=== PATIENT | female | born 1985 | race Caucasian/White ===

== ENCOUNTER 2021-03-25 11:28 | Emergency (ER) | payer OTHER, SELFPAY ==
[2021-03-25 11:36] VITALS: BP 111/69; PULSE 80; RESP 16; TEMP 36.9; O2SAT 98
--- NOTE | 2021-03-25 13:12 | ED.GENADULT ---
HPI - General Adult General Chief complaint: Upper Respiratory Infection Stated complaint: sore throat headache chills Time Seen by Provider: 03/25/21 13:12 Source: patient and RN notes reviewed Mode of arrival: ambulatory Limitations: no limitations History of Present Illness HPI narrative: 36-year-old female presents with complaints of upper respiratory infection symptoms, sore throat, cough, sweats, chills, and intermittent headaches (not the worst of her life) for the past 4 days. Jigna reports no BURRIS now, increasing symptoms daily. DayQuil and NyQuil without relief. History of Bronchitis and smoking. Dry cough without chest congestion. Rhinorrhea and nasal congestion. Exacerbating factors consist of swallowing and smoke exposure. No high fevers. No nausea, vomiting, and abdominal pain. Tolerating po intake well. Denies chest pain, coughing up blood, foreign body sensation, and rash. LMP 03/22/21. Remains active. The patient reports she have not been diagnosed with COVID-19. The patient reports she is not waiting for the results of a COVID-19 lab test. The patient reports she do not have weakness, myalgia, or fatigue. The patient reports she do not have a worsening cough. The patient reports she do not have any loss of smell or taste or diarrhea. Denies recent traveling. Denies concerns for COVID-19 or exposures been home with limited outdoor exposure except for essential household needs, work, and return home. At this time, patient is not suspected of having COVID-19. Some parts of this dictation were generated by voice recognition software and may contain typographical and/or grammatical inaccuracies. Related Data Home Medications Medication Instructions Recorded Confirmed buspirone 20 mg PO TID 03/25/21 03/25/21 escitalopram oxalate 20 mg PO DAILY 03/25/21 03/25/21 ropinirole 0.5 mg PO HS 03/25/21 03/25/21 Allergies Allergy/AdvReac Type Severity Reaction Status Date / Time sulfamethoxazole Allergy Intermediate Hives Verified 03/25/21 12:06 [From Bactrim] trimethoprim [From Bactrim] Allergy Intermediate Hives Verified 03/25/21 12:06 Review of Systems Review of Systems: Narrative: CONSTITUTIONAL: Complains of chills, sweats, possible fever. EYES: Denies visual changes, redness, discharge. ENT: Complains of rhinorrhea, congestion, sore throat. Denies otalgia. CARDIOVASCULAR: Denies chest pain, palpitations, edema. RESPIRATORY: Denies wheezing. Complains of dry cough, intermittent dyspnea. GASTROINTESTINAL: Denies abdominal pain, nausea, vomiting, diarrhea. SKIN: Denies rash or itching. MUSCULOSKELETAL: Denies acute back pain, joint pain, myalgia. NEUROLOGIC: Denies numbness or focal weakness. PSYCHIATRIC: Denies anxiety or depression. Complains of intermittent BURRIS. All systems reviewed & are unremarkable except as noted in HPI and below. [facility] Past Medical History Medical History Anxiety Bronchitis delivery delivered Depression Smoker Surgical History Surgical History (Updated 03/25/21 @ 13:27 by SHMUEL Aranda) H/O section X2 History of cholecystectomy History of tubal ligation Family History Family History (Updated 03/25/21 @ 13:27 by SHMUEL Aranda) Father , Related to cancer, type unknown to Jigna Cancer Mother Alive and well Social History Social History (Updated 03/25/21 @ 13:28 by SHMUEL Aranda) Smoking packs per day: 0.5 Smoking cigarettes per day: 10.0 Years smoked: 20 Smoking pack-years: 10.00 Smoking status: Current every day smoker Tobacco type: cigarettes Second hand tobacco smoke exposure: Yes Alcohol intake: never Substance use: never Living arrangements: with family Occupation/Education: occupation Gender identity (if verbalized by the patient): Female Sexual Orientation (if Verbalized by the Patient): Straight or Heterosexual Comments At time of signature,
[2021-03-26 20:07] LABS: SARS-CoV-2 RNA PCR Negative
== END 2021-03-25 13:40 | disposition home or self-care (01) ==
PROVIDERS: Emergency Provider Nurse Practitioner Family; PCP Internal Medicine
DX: B34.9 Viral infection, unspecified (principal); Z20.822 Contact with and (suspected) exposure to COVID-19; F17.210 Nicotine dependence, cigarettes, uncomplicated; F41.9 Anxiety disorder, unspecified; F32.9 Major depressive disorder, single episode, unspecified
CPT/HCPCS: 87081; 87426; 87880; 99213; C9803; G0463; U0003; U0005

== ENCOUNTER 2021-09-09 12:11 | Emergency (ER) | payer OTHER, SELFPAY ==
[2021-09-09 12:15] VITALS: BP 117/72; PULSE 88; RESP 20; TEMP 36.7; O2SAT 100
--- NOTE | 2021-09-09 12:19 | ED.URI ---
HPI - URI/Sore Throat General Chief Complaint: Upper Respiratory Infection Stated Complaint: Sore Throat/ Ear Itching Time Seen by Provider: 09/09/21 12:19 Source: patient and RN notes reviewed History of Present Illness HPI Narrative: Patient is a 36-year-old female who presents the urgent care with complaints of intermittent sore throat, bilateral itchy ears, intermittent headaches, mostly dry cough, postnasal drainage. Patient states that she has been using someone else's albuterol and nebulizer with improvement of symptoms. Patient denies of any fever, nausea, vomiting. Currently denies any shortness of breath. Patient has not been Covid vaccinated but denies of any known exposure to Covid or strep. Patient has been taking Excedrin Migraine, DayQuil for symptoms. No other acute complaints. No acute distress noted. Patient aware of the plan of care. Some parts of this dictation were generated by voice recognition software and may contain typographical and/or grammatical inaccuracies. Related Data Home Medications Medication Instructions Recorded Confirmed buspirone 20 mg PO TID 09/09/21 09/09/21 escitalopram oxalate 10 mg PO DAILY 09/09/21 09/09/21 escitalopram oxalate 20 mg PO DAILY 09/09/21 09/09/21 hydroxyzine pamoate 25 mg PO TID 09/09/21 09/09/21 ropinirole 0.5 mg PO DAILY 09/09/21 09/09/21 Allergies Allergy/AdvReac Type Severity Reaction Status Date / Time sulfamethoxazole Allergy Intermediate Hives Verified 09/09/21 12:41 [From Bactrim] trimethoprim [From Bactrim] Allergy Intermediate Hives Verified 09/09/21 12:41 Review of Systems Review of Systems: CONSTITUTIONAL: Denies fever, chills, or sweats. EYES: Denies visual changes, redness, or discharge. ENT: Reports of bilateral itchy ears, sore throat, postnasal drainage CARDIOVASCULAR: Denies chest pain, palpitations, or edema. RESPIRATORY: Reports a nonproductive cough without dyspnea GASTROINTESTINAL: Denies abdominal pain, nausea, vomiting, or diarrhea. GENITOURINARY: Denies dysuria or hematuria. SKIN: Denies rash or itching. MUSCULOSKELETAL: Denies back pain, joint pain, or myalgia. NEUROLOGIC: Reports of intermittent headaches All other systems reviewed are negative, except as documented in HPI. PMFSH Past Medical History Medical History Anxiety Bronchitis delivery delivered Depression Smoker Surgical History Surgical History (Updated 03/25/21 @ 13:27 by SHMUEL Aranda) H/O section X2 History of cholecystectomy History of tubal ligation Family History Family History (Updated 03/25/21 @ 13:27 by SHMUEL Aranda) Father , Related to cancer, type unknown to Jigna Cancer Mother Alive and well Social History Social History (Updated 03/25/21 @ 13:28 by SHMUEL Aranda) Smoking packs per day: 0.5 Smoking cigarettes per day: 10.0 Years smoked: 20 Smoking pack-years: 10.00 Smoking status: Current every day smoker Tobacco type: cigarettes Second hand tobacco smoke exposure: Yes Alcohol intake: never Substance use: never Gender identity (if verbalized by the patient): Female Sexual Orientation (if Verbalized by the Patient): Straight or Heterosexual Comments At the time of my signature, I reviewed and agree with the nursing past medical, surgical, social, and family history. There is no relevant family history pertinent to the patient complaint. Exam Narrative: GENERAL: This is a well-nourished, well-developed patient, in no apparent distress. HEAD: normocephalic, atraumatic. EYES: PERRL. Sclera clear/white. Vision is grossly intact. EARS: External ears normal, auditory canals clear and without drainage, TMs normal without perforation. Hearing grossly intact. NOSE: External nose normal with no obvious nasal discharge, nares without redness, clear rhinorrhea. THROAT: Mucous membranes moist, mild erythema in posterior pharynx with moderate postnasal dr
== END 2021-09-09 12:50 | disposition home or self-care (01) ==
PROVIDERS: Emergency Provider Nurse Practitioner Family
DX: J06.9 Acute upper respiratory infection, unspecified (principal); F17.210 Nicotine dependence, cigarettes, uncomplicated; F41.9 Anxiety disorder, unspecified; F32.A Depression, unspecified
CPT/HCPCS: 87081; 87880; 99213; G0463

== ENCOUNTER 2021-12-26 08:32 | Emergency (ER) | payer OTHER, SELFPAY ==
--- NOTE | ~2021-12-26 | XR_ITS ---
EXAMINATION: XR abdomen/kub 1V INDICATION: Abdominal pain TECHNIQUE: Supine views of the abdomen were obtained on 2 radiographs. COMPARISON: None FINDINGS: Pelvic calcifications have the appearance of phleboliths. There is a moderate volume of lef t-sided colonic stool. No dilated loops of bowel are evident. Surgical clips in the right upper quadr ant are likely from prior cholecystectomy. The visualized lung bases are clear. IMPRESSION: 1. No radiographic correlate for the patient's symptoms. Reviewed, dictated and finalized at location A. [facility] HELPER
[2021-12-26 08:38] VITALS: BP 135/63; PULSE 80; RESP 20; TEMP 37.1; O2SAT 98
--- NOTE | 2021-12-26 09:38 | ED.ABDPAIN ---
HPI - Abdominal Pain General Chief Complaint: Abdominal Pain Stated Complaint: Abdominal Pain/constipation Time Seen by Provider: 12/26/21 08:56 Source: patient and RN notes reviewed Mode of arrival: ambulatory Limitations: no limitations History of Present Illness HPI narrative: Presents today complaining, I can't go to the bathroom. Patient states she has not had a normal bowel movement in 2 days, which has led to supraorbital pain. She has had 2 very hard small stools, where she normally has bowel movements daily. Denies blood or mucus in her hard stools. Denies nausea, vomiting, fever. She has not tried any [id number] treatment prior to arrival, as she states she did not have time due to her work schedule. States she has taken laxatives in the past for similar symptoms. MD elicited complaint: abdominal pain and other (Constipation) Related Data Home Medications Medication Instructions Recorded Confirmed buspirone 20 mg PO TID 09/09/21 12/26/21 escitalopram oxalate 20 mg PO DAILY 09/09/21 12/26/21 bupropion HCl [Wellbutrin XL] 300 mg PO QAM 12/26/21 12/26/21 Allergies Allergy/AdvReac Type Severity Reaction Status Date / Time sulfamethoxazole Allergy Intermediate Hives Verified 12/26/21 08:57 [From Bactrim] trimethoprim [From Bactrim] Allergy Intermediate Hives Verified 12/26/21 08:57 Review of Systems Review of Systems: CONSTITUTIONAL: Denies body aches, fever, chills, or sweats. EYES: Denies visual changes, redness, or discharge. ENT: Denies rhinorrhea, congestion, sore throat, or otalgia. CARDIOVASCULAR: Denies chest pain, palpitations, or edema. RESPIRATORY: Denies cough or dyspnea. GASTROINTESTINAL: Denies nausea, vomiting, or diarrhea.+ Abdominal pain, constipation GENITOURINARY: Denies dysuria or hematuria. SKIN: Denies rash, itching, or wounds. MUSCULOSKELETAL: Denies back pain, joint pain, or myalgia. NEUROLOGIC: Denies headache, numbness, tingling, or weakness. PSYCH: Denies depression or anxiety. PMF Past Medical History Medical History Anxiety Bronchitis delivery delivered Depression Smoker Surgical History Surgical History H/O section X2 History of cholecystectomy History of tubal ligation Family History Family History Father , Related to cancer, type unknown to Jigna Cancer Mother Alive and well Social History Social History Smoking packs per day: 0.5 Smoking cigarettes per day: 10.0 Years smoked: 20 Smoking pack-years: 10.00 Smoking status: Current every day smoker Tobacco type: cigarettes Second hand tobacco smoke exposure: Yes Alcohol intake: never Substance use: never Gender identity (if verbalized by the patient): Female Sexual Orientation (if Verbalized by the Patient): Straight or Heterosexual Comments At time of signature, I have reviewed and agree with nursing past medical, surgical, social and family history unless otherwise noted. Please see nursing chart for further information. There is no relevant family history pertinent to the presenting complaint Exam Narrative: GENERAL: Well-appearing, well-nourished, and in no acute distress. HEAD: Normocephalic, atraumatic. EYES: EOMI. No redness or drainage. Conjunctivae normal. ENT: Mucous membranes pink and moist. NECK: Normal AROM. CHEST: No respiratory distress. Clear to auscultation. HEART: Regular rate and rhythm. No murmur appreciated. Normal peripheral pulses. ABDOMEN: Soft, nondistended, normal active bowel sounds. Mild tenderness to left upper and lower quadrants. MUSCULOSKELETAL: No bony tenderness. EXTREMITIES: Normal range of motion. No edema. SKIN: Warm, dry, no rash. Capillary refill normal. Normal skin turgor. NEURO: No focal deficits. Alert and
== END 2021-12-26 09:50 | disposition home or self-care (01) ==
PROVIDERS: Emergency Provider Nurse Practitioner; PCP Internal Medicine
DX: K59.00 Constipation, unspecified (principal); F17.210 Nicotine dependence, cigarettes, uncomplicated; F41.9 Anxiety disorder, unspecified; F32.A Depression, unspecified
CPT/HCPCS: 74018; 81003; 99213; G0463

== ENCOUNTER 2022-01-11 11:09 | Emergency (ER) | payer OTHER, SELFPAY ==
--- NOTE | ~2022-01-11 | XR_ITS ---
EXAMINATION: XR lumbar spine 2-3V DATE: 01/11/2022 11:42 INDICATION: Low back pain. TECHNIQUE: 3 views of lumbar spine were obtained. COMPARISON: None. FINDINGS: There is 6 degrees levocurvature of thoracolumbar spine. Vertebral body heights and interve rtebral disc heights are normal. There are endplate osteophytes at multiple levels. There is multilev el mild facet joint osteoarthritis. Surgical clips in the right upper quadrant are likely from cholec ystectomy. IMPRESSION: 1. Mild lumbar spondylosis. Reviewed, dictated and finalized at location A. [facility] IMPRESSION: 1. Mild lumbar spondylosis.
[2022-01-11 11:18] VITALS: BP 102/71; PULSE 84; RESP 20; TEMP 36.6; O2SAT 100
--- NOTE | 2022-01-11 11:24 | ED.GENADULT ---
HPI - General Adult General Chief complaint: Back Pain/Injury Stated complaint: Back pain Time Seen by Provider: 01/11/22 11:24 Source: patient Mode of arrival: ambulatory Limitations: no limitations History of Present Illness HPI narrative: 36-year-old female patient presents to the [facility] with complaints of lower back pain. 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 Patient states she now has pain running down the left side of the leg. Patient states that has been difficult to walk. Denies taking anything for pain prior to arrival. Related Data Home Medications Medication Instructions Recorded Confirmed escitalopram oxalate 20 mg PO HS 09/09/21 01/11/22 bupropion HCl [Wellbutrin XL] 300 mg PO QAM 12/26/21 01/11/22 buspirone 15 mg PO TID 01/11/22 01/11/22 Allergies Allergy/AdvReac Type Severity Reaction Status Date / Time sulfamethoxazole Allergy Intermediate Hives Verified 01/11/22 11:40 [From Bactrim] trimethoprim [From Bactrim] Allergy Intermediate Hives Verified 01/11/22 11:40 Review of Systems Review of Systems: CONSTITUTIONAL: Denies fever, chills, or sweats. EYES: Denies visual changes, redness, or discharge. ENT: Denies rhinorrhea, congestion, sore throat, or otalgia. CARDIOVASCULAR: Denies chest pain, palpitations, or edema. RESPIRATORY: Denies cough or dyspnea. GASTROINTESTINAL: Denies abdominal pain, nausea, vomiting, or diarrhea. GENITOURINARY: Denies dysuria or hematuria. SKIN: Denies rash or itching. MUSCULOSKELETAL: Positive low back pain, denies joint pain, or myalgia. NEUROLOGIC: Denies headache, numbness, or weakness. PSYCHIATRIC: Denies anxiety or depression. [facility] Past Medical History Medical History Anxiety Bronchitis delivery delivered Chronic back pain Depression Smoker Surgical History Surgical History H/O section X2 History of cholecystectomy History of tubal ligation Family History Family History Father , Related to cancer, type unknown to Jigna Cancer Mother Alive and well Social History Social History Smoking packs per day: 0.5 Smoking cigarettes per day: 10.0 Years smoked: 20 Smoking pack-years: 10.00 Smoking status: Current every day smoker Tobacco type: cigarettes Second hand tobacco smoke exposure: Yes Alcohol intake: never Substance use: never Gender identity (if verbalized by the patient): Female Sexual Orientation (if Verbalized by the Patient): Straight or Heterosexual Comments At the time of my signature I agree with nursing past medical history, surgical, social, and family history. There is no relevant family history pertinent to the presenting complaint. Exam Narrative: GENERAL: Well-appearing, well-nourished, and in no acute distress. HEAD: Normocephalic, atraumatic. EYES: PERRLA and EOMI. ENT: Nares clear, no rhinorrhea or epistaxis. Mucous membranes moist. NECK: Supple. No lymphadenopathy CHEST: Clear to auscultation. No respiratory distress. HEART: Regular rate and rhythm. No murmur heard. Normal peripheral pulses. ABDOMEN: Soft, nontender, nondistended, normal active bowel sounds. EXTREMITIES: Normal range of motion. No edema. BACK: Patient is able to ambulated without assistance. Pt is seated on the chair in obvouis distress. No surface trauma noted. muscle tenderness to Palpation noted to the lower lumbar spine and bilateral sides. No obvious spasm or mass. No step-offs or deformity noted to the cervical, thoracic or lumbar spine to firm Palpation at the midline. No CVA tenderness to percussion. No saddle anesthesia. ROM: able to stand erect. Decrease flexion, extension, Lateral bending and rotation with limitation and complaint of pain
[2022-01-11] MEDS: IBUPROFEN 400 MG TABLET 800 MG PO (11:43)
== END 2022-01-11 12:10 | disposition home or self-care (01) ==
PROVIDERS: Emergency Provider Nurse Practitioner Family
DX: S39.012A Strain of muscle, fascia and tendon of lower back, initial encounter (principal); X50.9XXA Other and unspecified overexertion or strenuous movements or postures, initial encounter; M54.32 Sciatica, left side; F17.210 Nicotine dependence, cigarettes, uncomplicated; F41.9 Anxiety disorder, unspecified; F32.A Depression, unspecified
CPT/HCPCS: 72100; 99213; A9270; G0463

== ENCOUNTER 2022-07-25 15:06 | Emergency (ER) | payer OTHER, SELFPAY ==
[2022-07-25 15:15] VITALS: BP 118/74; PULSE 101; RESP 16; TEMP 37.1; O2SAT 98
--- NOTE | 2022-07-25 15:28 | ED.EYEPROB ---
HPI - Eye Problem General Chief complaint: Eye Problems Stated complaint: right eye fb or scratch Time Seen by Provider: 07/25/22 15:20 Source: patient Mode of arrival: ambulatory Limitations: no limitations History of Present Illness HPI Narrative: Ms. Villeda is a 37-year-old female patient presenting to the clinic today with complaints of right eye discomfort/blurry vision. She reports that she had symptoms bone in her eye yesterday and has been dealing with this since last night. States no pain with light however she does have blurry vision due to eye watering. Related Data Home Medications Medication Instructions Recorded Confirmed escitalopram oxalate 20 mg tablet 20 mg PO HS 09/09/21 07/25/22 bupropion HCl 300 mg 24 hr tablet, 300 mg PO QAM 12/26/21 07/25/22 extended release (Wellbutrin XL) buspirone 15 mg tablet 15 mg PO TID 01/11/22 07/25/22 Allergies Allergy/AdvReac Type Severity Reaction Status Date / Time sulfamethoxazole Allergy Intermediate Hives Verified 07/25/22 15:19 [From Bactrim] trimethoprim [From Bactrim] Allergy Intermediate Hives Verified 07/25/22 15:19 Review of Systems Review of Systems: Pertinent positives per HPI. Patient denies any fever, chills, rash, headache, visual changes, dizziness, cough, runny nose, sore throat, shortness of breath, chest pain, palpitations, nausea, vomiting, diarrhea, constipation, abdominal pain, or any urinary issues. PMFSH Past Medical History Medical History Anxiety Bronchitis delivery delivered Chronic back pain Depression Smoker Surgical History Surgical History H/O section X2 History of cholecystectomy History of tubal ligation Family History Family History Father , Related to cancer, type unknown to Jigna Cancer Mother Alive and well Social History Social History Smoking packs per day: 0.5 Smoking cigarettes per day: 10.0 Years smoked: 20 Smoking pack-years: 10.00 Smoking status: Current every day smoker Tobacco type: cigarettes Second hand tobacco smoke exposure: Yes Alcohol intake: never Substance use: never Gender identity (if verbalized by the patient): Female Sexual Orientation (if Verbalized by the Patient): Straight or Heterosexual Comments At the time of my signature, I reviewed and agree with the nursing past medical, surgical, social, and family history. There is no relevant family history pertinent to the patient complaint. Exam Narrative: General: Well-developed, well nourished, in no apparent distress Head: Normocephalic, atraumatic Eyes: Pupils equally round and reactive to light bilaterally, EOM intact, right sclera and conjunctive injected and red, left sclera and conjunctiva clear, watery clear discharge from right eye, left lids normal, right lids mildly swelling Ears: TMs intact and clear, ear canals clear, no drainage, grossly hearing normal. Nose: Nares patent, no discharge, no inflammation, no sinus tenderness. Mouth: Oropharynx without lesions or masses, good dentition, MMM. Neck: Supple, trachea midline, no enlargement of anterior or posterior cervical nodes, no thyroid masses or goiter palpable. Cardio: Regular rate and rhythm, s1 and s2 normal, no murmur appreciated. Resp: Clear to auscultation bilaterally anteriorly and posteriorly, no rhonchi, rales, wheezing or rubs Course Course Emergency Course: Portions of this record may have been created with voice recognition software. Level of Care: Express Care Visit Vital Signs Vital signs: Vital Signs Temperature 37.1 C 07/25/22 15:15 Pulse Rate 101 H 07/25/22 15:15 Respiratory Rate 16 07/25/22 15:15 Blood Pressure 118/74 07/25/22 15:15 Pulse Oximetry 98 07/25/22 15:15 Oxygen Delivery
== END 2022-07-25 15:38 | disposition home or self-care (01) ==
PROVIDERS: Emergency Provider Nurse Practitioner Family
DX: H57.11 Ocular pain, right eye (principal); F41.8 Other specified anxiety disorders; F17.210 Nicotine dependence, cigarettes, uncomplicated
CPT/HCPCS: 99213; A9270; G0463

== ENCOUNTER 2022-12-22 08:15 | Emergency (ER) | payer OTHER, SELFPAY ==
[2022-12-22 08:20] VITALS: BP 122/81; PULSE 94; RESP 20; TEMP 36.9; O2SAT 97
--- NOTE | 2022-12-22 08:59 | ED.ABDPAIN ---
HPI - Abdominal Pain General Chief Complaint: Abdominal Pain Stated Complaint: Abdominal Pain Time Seen by Provider: 12/22/22 08:59 Source: patient, RN notes reviewed and old records reviewed Mode of arrival: ambulatory Limitations: no limitations History of Present Illness HPI narrative: 37-year-old female who presents to [facility] with complaints right lower quadrant pain with nausea starting yesterday with pain increased this morning. Patient states that she thought she may of been constipated and took stool softeners yesterday and had a normal bowel movement this morning. Patient reports that her appetite is decreased but she has drank liquids this morning. Patient reports that she has not experienced any vomiting or any episodes of diarrhea or any known fevers. MD elicited complaint: abdominal pain (RLQ) Pain scale (0-10): 10 Treatments prior to arrival: other (none) Related Data Home Medications Medication Instructions Recorded Confirmed bupropion HCl 300 mg 24 hr tablet, 300 mg PO QAM 12/26/21 12/22/22 extended release (Wellbutrin XL) buspirone 30 mg tablet 30 mg PO BID 12/22/22 12/22/22 escitalopram oxalate 10 mg tablet 10 mg PO DAILY 12/22/22 12/22/22 ropinirole 0.5 mg tablet 0.5 mg PO QHS 12/22/22 12/22/22 Allergies Allergy/AdvReac Type Severity Reaction Status Date / Time sulfamethoxazole Allergy Intermediate Hives Verified 12/22/22 08:57 [From Bactrim] trimethoprim [From Bactrim] Allergy Intermediate Hives Verified 12/22/22 08:57 Review of Systems Review of Systems: CONSTITUTIONAL: Denies fever, chills, or sweats. ENT: Denies rhinorrhea, congestion, sore throat, or otalgia. CARDIOVASCULAR: Denies chest pain, palpitations, or edema. RESPIRATORY: Denies cough or dyspnea. GASTROINTESTINAL: Reports RLQ abdominal pain, nausea,no vomiting, no diarrhea. GENITOURINARY: Denies dysuria or hematuria. SKIN: Denies rash or itching. MUSCULOSKELETAL: Denies back pain, joint pain, or myalgia. NEUROLOGIC: Denies headache, numbness, or weakness. All systems reviewed & are unremarkable except as noted in HPI and below PMFSH Past Medical History Medical History Anxiety Bronchitis delivery delivered Chronic back pain Depression Smoker Surgical History Surgical History H/O section X2 History of cholecystectomy History of tubal ligation Family History Family History Father , Related to cancer, type unknown to Jigna Cancer Mother Alive and well Social History Social History Smoking packs per day: 0.5 Smoking cigarettes per day: 10.0 Years smoked: 20 Smoking pack-years: 10.00 Smoking status: Current every day smoker Tobacco type: cigarettes Second hand tobacco smoke exposure: Yes Alcohol intake: never Substance use: never Living arrangements: with family Occupation/Education: occupation Gender identity (if verbalized by the patient): Female Sexual Orientation (if Verbalized by the Patient): Straight or Heterosexual Comments At time of signature, agree with nursing past medical, surgical, social and family history. There is no relevant family history pertinent to the presenting complaint Exam Narrative: GENERAL: Well-appearing, well-nourished, and in no acute distress. HEAD: Normocephalic, atraumatic. EYES: PERRLA, conjunctivae clear, and EOMI. ENT: Nares clear. Mucous membranes moist. Oropharynx without edema, erythema, or lesions. Tonsils not enlarged and without exudate. NECK: Supple. No lymphadenopathy CHEST: Speaks in full sentences. No respiratory distress. HEART: Regular rate and rhythm. ABDOMEN: Soft, flat, nondistended. positive for guarding, no rebound tenderness, or rigid. No pulsatilla masses. Bowel sounds present in all four quadrant
== END 2022-12-22 09:10 | disposition short-term general hospital (02) ==
PROVIDERS: Emergency Provider Registered Nurse; PCP Internal Medicine
DX: R10.31 Right lower quadrant pain (principal); F17.210 Nicotine dependence, cigarettes, uncomplicated; F41.9 Anxiety disorder, unspecified; F32.A Depression, unspecified
CPT/HCPCS: 81003; 99212; G0463

== ENCOUNTER 2025-08-12 08:56 | Emergency (ER) | payer BC, SELFPAY ==
--- OUTSIDE RECORDS SUMMARY | 2025-08-12 09:01 | XMS_ITS | Data Portability ---
Author Organization [place] - [facility] Access Media 3, Main Office Address [address] [place] [address] Care Team Providers Care Care Asst Name Role Phone Unavailable Account Liaison Hospice Unavailable Account Liaison Hospice Assessment No assessment recorded. Plan of Treatment Reminders Order Date Submit Date Provider Last Modified By Organization Details Last Modified Time Details Appointments None recorded. Lab vitamin D, 25-hydroxy, total, serum 2022 023 [email or web address] [address] [place] [address] (Lab), [address] [place], [address], 4 08:30:54 CBC w/ auto diff 2022 023 [facility] [address] [place] [address] (Lab), [address] [place], [address], 4 08:30:54 lipid panel, serum 2022 023 [email or web address] [address] [place] [address] (Lab), [address] [place], [address], 4 08:30:54 CMP, serum or plasma 2022 023 [facility] [address] [place] [address] (Lab), [address] [place], [address], 4 08:30:54 TSH, serum or plasma 2022 023 [facility] [address] [place] [address] (Lab), [address] [place], [address], 4 08:30:54 Referral chimney repairer referral 2022 023 [email or web address] 6 Kishore Padron DPM, [address], [place], [address], 4 08:31:11 Procedures None recorded. Surgeries None recorded. Imaging None recorded. Medication Orders ropinirole 1 mg tablet 2022 023 [id number], [address], [place], [place], [id number], 3 15:49:27 Patient TargetsNo targets recorded. 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 Referral for Ingr owing toenail Referring Physician: Eulalia Solares, Internal Medicine, Encounter Date: 05/07/2023 Results Created Date Observation Date Name Description Value Unit Range Abnormal Flag Note LastModifiedBy Organization Detail LastModifiedTime 05/20/20 22 05/20/2022 TSH thyroid-stim ulating hormone 1.010 uIU/m L 0.465- 4.680 Not Available [facility] (Lab) [address] [place], [address], 05/20/2022 11:33:51 05/20/20 22 05/20/2022 VITAM IN D 25-HY DROXY vd25oh 61.7 NG/mL 30-100 Vitam in D Statu s: Defic ient: <20 ng/mL Insuf ficie nt: 20-29 ng/mL Suffi cient : 30-10 0 ng/mL Not Available [facility] (Lab) [address] [place], [address], 05/20/2022 11:23:35 05/20/20 22 05/20/2022 T4 FREE free T4 1.19 NG/dL 0.78-2 .19 Not Available [facility] (Lab) [address] [place], [address], 05/20/2022 11:23:25 05/20/20 22 05/20/2022 LIPID PANEL LDL cholesterol, calculated 87 mg/dL 0-130 NIH ABDI NSUS REPOR T RECOM MENDA TIONS FOR LDL: ADULT CHILD LOW RISK <130 <110 (OPTI MAL LDL) <100 ----- BORDE RLINE : 130-1 59 ----- HIGH RISK: >160 >130 A TRIGL YCERI DE RESUL T >400 INVAL IDATE S THE CALCU LATIO N FOR LDL FRACT IONAT ION - THE LDL RESUL T WILL NOT BE REPOR BRANDY. Not Available [facility] (Lab) [address] [place], [address], 05/20/2022 11:05:45 05/20/20 22 05/20/2022 LIPID PANEL cholesterol 161 mg/dL 140-19 9 NIH ABDI NSUS RECOM MENDA TION FOR LUIS DANIEL STERO L: ADULT CHILD LOW RISK: <200 <170 BORDE RLINE : <200- 239 ----- HIGH RISK: >240 >200 Not Available [facility] (Lab) [address] [place], [address], 05/20/2022 11:05:45 05/20/20 22 05/20/2022 LIPID PANEL triglyceride s 73 mg/dL 0-150 NIH ABDI NSUS REPOR T RECOM MENDA TION FOR TRIGL YCERI RINA: ADULT CHILD LOW RISK: <150 ----- BODER LINE: 150-1 99 ----- HIGH RISK: >200 ----- Not Available [facility] (Lab) [address] [place], [address], 05/20/2022 11:05:45 05/20/20 22 05/20/2022 LIPID PANEL HDL cholesterol 59 mg/dL 40- Not Available [facility] (Lab) [address] [place], [address], 05/20/2022 11:05:45 05/20/20 22 05/20/2022 COMPR EHENS ALEN METAB OLIC PANEL sodium 139 mmol/ L 137-14 5 Not Available [facility] (Lab) [address] [place], [address], 05/20/2022 11:05:42 05/20/20 22 05/20/2022 COMPR EHENS ALEN METAB OLIC PANEL potassium 4.0 mmol/ L 3.5-5. 1 Not Available [facility] (Lab) [address] [place], [address], 05/20/2022 11:05:42 05/20/20 22 05/20/2022 COMPR EHENS ALEN METAB OLIC PANEL chloride 106 mmol/ L 98-107 Not Available [facility] (Lab) [address] [place], [address], 05/20/2022 11:05:42 05/20/20 22 05/20/2022 COMPR EHENS ALEN METAB OLIC PANEL carbon dioxide 28 mmol/ L 22-30 Not Available [facility] (Lab) [address] [place], [address], 05/20/2022 11:05:42 05/20/20 22 05/20/2022 COMPR EHENS ALEN METAB OLIC PANEL anion gap 9.0 mmol/ L 14-22 low Not Available [facility] (Lab) [address] [place], [address], 05/20/2022 11:05:42 05/20/20 22 05/20/2022 COMPR EHENS ALEN METAB OLIC PANEL glucose 100 mg/dL 70-99 high Not Available [facility] (Lab) [address] [place], [address], 05/20/2022 11:05:42 05/20/20 22 05/20/2022 COMPR EHENS ALEN METAB OLIC PANEL BUN 10 mg/dL 8-19 Not Available [facility] (Lab) [address] [place], [address], 05/20/2022 11:05:42 05/20/20 22 05/20/2022 COMPR EHENS ALEN METAB OLIC PANEL creatinine 0.76 mg/dL 0.66-1 .25 Not Available [facility] (Lab) [address] [place], [address], 05/20/2022 11:05:42 05/20/20 22 05/20/2022 COMPR EHENS ALEN METAB OLIC PANEL GFR >60 Refer ence Range : [place] GFR Healt hy Adult : >60 mL/mi n/1.7 3 m2 Chron ic Kidne y Disea se: 15-60 mL/mi n/1.7 3 m2 Kidne y Failu re: <15/m L/min /1.73 m2 www.n iddk. nih.g ov The MDRD study equat ion has not been valid ated in child allen <18 years of age; pregn ant women ; the elder ly >85 years of age; or in some racia l or ethni c subgr oups, such as wa nics. Outsi de the valid ated shaw eters , estim ated GFR is less accur ate, requi ring clini nhung judgm ent on a case- by-ca se basis . Clini nhung inter preta tion for other races and ages must be made by the clini vera. The MDRD study equat ion has not been valid ated for the evalu ation of serum creat inine relat ed to nutri amy l statu s or medic ation usage . For perso ns <18 years of age, a pedia tric GFR calcu lator is avail able on the F websi te: https ://patrizia w.lennox christina.o rg/pr ofess ional s/kdo qi/gf r_cal culat or Not Available [facility] (Lab) [address] [place], [address], 05/20/2022 11:05:42 05/20/20 22 05/20/2022 COMPR EHENS ALEN METAB OLIC PANEL globulin 2.8 g/dL 2.6-4. 2 Not Available [facility] (Lab) [address] [place], [address], 05/20/2022 11:05:42 05/20/20 22 05/20/2022 COMPR EHENS ALEN METAB OLIC PANEL alkaline phosphatase 78 U/L 38-126 Not Available [facility] (Lab) [address] [place], [address], 05/20/2022 11:05:42 05/20/20 22 05/20/2022 COMPR EHENS ALEN METAB OLIC PANEL alanine aminotransfe rase 17 U/L 0-35 Not Available [facility] (Lab) [address] [place], [address], 05/20/2022 11:05:42 05/20/20 22 05/20/2022 COMPR EHENS ALEN METAB OLIC PANEL aspartate aminotransfe rase 24 U/L 15-37 Not Available [facility] (Lab) [address] [place], [address], 05/20/2022 11:05:42 05/20/20 22 05/20/2022 COMPR EHENS ALEN METAB OLIC PANEL bilirubin, total 0.50 mg/dL 0.20-1 .30 Not Available [facility] (Lab) [address] [place], [address], 05/20/2022 11:05:42 05/20/20 22 05/20/2022 COMPR EHENS ALEN METAB OLIC PANEL calcium 8.7 mg/dL 8.4-10 .2 Not Available [facility] (Lab) [address] [place], [address], 05/20/2022 11:05:42 05/20/20 22 05/20/2022 COMPR EHENS ALEN METAB OLIC PANEL total protein 6.9 g/dL 6.3-8. 2 Not Available [facility] (Lab) [address] [place], [address], 05/20/2022 11:05:42 05/20/20 22 05/20/2022 COMPR EHENS ALEN METAB OLIC PANEL albumin 4.1 g/dL 3.4-5. 0 Not Available [facility] (Lab) [address] [place], [address], 05/20/2022 11:05:42 05/20/20 22 05/20/2022 COMPR EHENS ALEN METAB OLIC PANEL A/G ratio 1.5 ratio 1.0-2. 0 Not Available [facility] (Lab) [address] [place], [address], 05/20/2022 11:05:42 05/20/20 22 05/20/2022 CBC/C OMPLE TE BLD COUNT W/DIF F white blood cells 7.9 x10'3 /uL 4.2-10 .8 Not Available [facility] (Lab) [address] [place], [address], 05/20/2022 11:03:24 05/20/20 22 05/20/2022 CBC/C OMPLE TE BLD COUNT W/DIF F red blood cells 4.12 x10'6 /uL 3.80-5 .20 Not Available [facility] (Lab) [address] [place], [address], 05/20/2022 11:03:24 05/20/20 22 05/20/2022 CBC/C OMPLE TE BLD COUNT W/DIF F hemoglobin 12.9 g/dL 12.0-1 5.6 Not Available [facility] (Lab) [address] [place], [address], 05/20/2022 11:03:24 05/20/20 22 05/20/2022 CBC/C OMPLE TE BLD COUNT W/DIF F hematocrit 37.7 % 35.7-4 5.7 Not Available [facility] (Lab) [address] [place], [address], 05/20/2022 11:03:24 05/20/20 22 05/20/2022 CBC/C OMPLE TE BLD COUNT W/DIF F mean red cell volume 91.5 fL 82.0-9 9.0 Not Available [facility] (Lab) [address] [place], [address], 05/20/2022 11:03:24 05/20/20 22 05/20/2022 CBC/C OMPLE TE BLD COUNT W/DIF F mean red cell hemoglobin 31.3 pg 27.0-3 3.0 Not Available [facility] (Lab) [address] [place], [address], 05/20/2022 11:03:24 05/20/20 22 05/20/2022 CBC/C OMPLE TE BLD COUNT W/DIF F mean RBC HGB concentratio n 34.2 g/dL 31.0-3 6.0 Not Available [facility] (Lab) [address] [place], [address], 05/20/2022 11:03:24 05/20/20 22 05/20/2022 CBC/C OMPLE TE BLD COUNT W/DIF F red cell distribution width 13.7 % 11.8-1 5.5 Not Available [facility] (Lab) [address] [place], [address], 05/20/2022 11:03:24 05/20/20 22 05/20/2022 CBC/C OMPLE TE BLD COUNT W/DIF F platelets 193 x10'3 /uL 150-40 0 Not Available [facility] (Lab) [address] [place], [address], 05/20/2022 11:03:24 05/20/20 22 05/20/2022 CBC/C OMPLE TE BLD COUNT W/DIF F mean platelet volume 10.6 fL 9.0-12 .4 Not Available [facility] (Lab) [address] [facility] [place], [address], 05/20/2022 11:03:24 05/20/20 22 05/20/2022 CBC/C OMPLE TE BLD COUNT W/DIF F neutrophils 59.8 % 39.0-7 2.0 Not Available [facility] (Lab) [address] [place], [address], 05/20/2022 11:03:24 05/20/20 22 05/20/2022 CBC/C OMPLE TE BLD COUNT W/DIF F lymphocytes 31.6 % 16.0-4 7.0 Not Available [facility] (Lab) [address] [place], [address], 05/20/2022 11:03:24 05/20/20 22 05/20/2022 CBC/C OMPLE TE BLD COUNT W/DIF F monocytes 6.5 % 5.0-12 .0 Not Available [facility] (Lab) [address] [place], [address], 05/20/2022 11:03:24 05/20/20 22 05/20/2022 CBC/C OMPLE TE BLD COUNT W/DIF F eosinophils 1.5 % 1.0-7. 0 Not Available [facility] (Lab) [address] [place], [address], 05/20/2022 11:03:24 05/20/20 22 05/20/2022 CBC/C OMPLE TE BLD COUNT W/DIF F basophils 0.3 % 0.0-2. 0 Not Available [facility] (Lab) [address] [place], [address], 05/20/2022 11:03:24 05/20/20 22 05/20/2022 CBC/C OMPLE TE BLD COUNT W/DIF F immature granulocytes 0.3 % 0.00-0 .50 Not Available [facility] (Lab) [address] [facility] [place], [address], 05/20/2022 11:03:24 05/20/20 22 05/20/2022 CBC/C OMPLE TE BLD COUNT W/DIF F neutrophils, absolute count 4.72 x10'3 /uL 1.5-8. 0 Not Available [facility] (Lab) [address] [place], [address], 05/20/2022 11:03:24 05/20/20 22 05/20/2022 CBC/C OMPLE TE BLD COUNT W/DIF F lymphocytes, absolute count 2.49 x10'3 /uL 1.07-3 .43 Not Available [facility] (Lab) [address] [place], [address], 05/20/2022 11:03:24 05/20/20 22 05/20/2022 CBC/C OMPLE TE BLD COUNT W/DIF F monocytes, absolute count 0.51 x10'3 /uL 0.29-0 .99 Not Available [facility] (Lab) [address] [place], [address], 05/20/2022 11:03:24 05/20/20 22 05/20/2022 CBC/C OMPLE TE BLD COUNT W/DIF F eosinophils, absolute count 0.12 x10'3 /uL 0.02-0 .53 Not Available [facility] (Lab) [address] [place], [address], 05/20/2022 11:03:24 05/20/20 22 05/20/2022 CBC/C OMPLE TE BLD COUNT W/DIF F basophils, absolute count 0.02 x10'3 /uL 0.01-0 .08 Not Available [facility] (Lab) [address] [place], [address], 05/20/2022 11:03:24 05/20/20 22 05/20/2022 CBC/C OMPLE TE BLD COUNT W/DIF F immature granulocytes ,absolute 0.02 x10'3 /uL 0.00-0 .05 Not Available [facility] (Lab) [address] [place], [address], 05/20/2022 11:03:24 05/20/20 22 05/20/2022 CBC/C OMPLE TE BLD COUNT W/DIF F nucleated red blood cells 0.0 % -0 Not Available [facility] (Lab) [address] [place], [address], 05/20/2022 11:03:24 05/20/20 22 05/20/2022 CBC/C OMPLE TE BLD COUNT W/DIF F NRBC# 0.00 x10'3 /uL Not Available [facility] (Lab) [address] [place], [address], 05/20/2022 11:03:24 06/13/20 22 06/13/2022 HEMOG LOBIN A1C HA1C 5.3 % 4.0-6. 0 Diabe jaci Scree jose Crite emily: <5.7% Consi stent with absen ce of diabe jaci 5.7-6 .4% Consi stent with incre ased risk for diabe jaci (pred iabet es) >OR=6 .5% Consi stent with diabe jaci REFER ENCE: Diabe jaci Care 2016, 39(Marx ppl.1 ):s13 -s22 Not Available [facility] (Lab) [address] [place], [address], 06/13/2022 19:54:47 12/05/19 23 12/05/2022 TSH thyroid-stim ulating hormone 0.731 uIU/m L 0.465- 4.680 Not Available [facility] (Lab) [address] [place], [address], 12/05/2022 11:58:20 12/05/19 23 12/05/2022 T4 FREE free T4 1.35 NG/dL 0.78-2 .19 Not Available [facility] (Lab) [address] [place], [address], 12/05/2022 11:40:33 12/05/19 23 12/05/2022 VITAM IN D 25-HY DROXY [id number] 61.6 NG/mL 30-100 Vitam in D Statu s: Defic ient: <20 ng/mL Insuf ficie nt: 20-29 ng/mL Suffi cient : 30-10 0 ng/mL Not Available [facility] (Lab) [address] [place], [address], 12/05/2022 11:40:27 12/05/19 23 12/05/2022 LIPID PANEL LDL cholesterol, calculated 98 mg/dL 0-130 NIH ABDI NSUS REPOR T RECOM MENDA TIONS FOR LDL: ADULT CHILD LOW RISK <130 <110 (OPTI MAL LDL) <100 ----- BORDE RLINE : 130-1 59 ----- HIGH RISK: >160 >130 A TRIGL YCERI DE RESUL T >400 INVAL IDATE S THE CALCU LATIO N FOR LDL FRACT IONAT ION - THE LDL RESUL T WILL NOT BE REPOR BRANDY. Not Available [facility] (Lab) [address] [place], [address], 12/05/2022 11:21:39 12/05/19 23 12/05/2022 LIPID PANEL cholesterol 170 mg/dL 140-19 9 NIH ABDI NSUS RECOM MENDA TION FOR LUIS DANIEL STERO L: ADULT CHILD LOW RISK: <200 <170 BORDE RLINE : <200- 239 ----- HIGH RISK: >240 >200 Not Available [facility] (Lab) [address] [place], [address], 12/05/2022 11:21:39 12/05/19 23 12/05/2022 LIPID PANEL triglyceride s 70 mg/dL 0-150 NIH ABDI NSUS REPOR T RECOM MENDA TION FOR TRIGL YCERI RINA: ADULT CHILD LOW RISK: <150 ----- BODER LINE: 150-1 99 ----- HIGH RISK: >200 ----- Not Available [facility] (Lab) [address] [place], [address], 12/05/2022 11:21:39 12/05/19 23 12/05/2022 LIPID PANEL HDL cholesterol 58 mg/dL 40- Not Available [facility] (Lab) [address] [place], [address], 12/05/2022 11:21:39 12/05/19 23 12/05/2022 COMPR EHENS ALEN METAB OLIC PANEL anion gap 12.0 mmol/ L 14-22 low Not Available [facility] (Lab) [address] [place], [address], 12/05/2022 11:21:35 12/05/19 23 12/05/2022 COMPR EHENS ALEN METAB OLIC PANEL sodium 139 mmol/ L 137-14 5 Not Available [facility] (Lab) [address] [place], [address], 12/05/2022 11:21:35 12/05/19 23 12/05/2022 COMPR EHENS ALEN METAB OLIC PANEL potassium 4.0 mmol/ L 3.5-5. 1 Not Available [facility] (Lab) [address] [place], [address], 12/05/2022 11:21:35 12/05/19 23 12/05/2022 COMPR EHENS ALEN METAB OLIC PANEL chloride 104 mmol/ L 98-107 Not Available [facility] (Lab) [address] [place], [address], 12/05/2022 11:21:35 12/05/19 23 12/05/2022 COMPR EHENS ALEN METAB OLIC PANEL carbon dioxide 27 mmol/ L 22-30 Not Available [facility] (Lab) [address] [place], [address], 12/05/2022 11:21:35 12/05/19 23 12/05/2022 COMPR EHENS ALEN METAB OLIC PANEL glucose 97 mg/dL 70-99 Not Available [facility] (Lab) [address] [facility] [place], [address], 12/05/2022 11:21:35 12/05/19 23 12/05/2022 COMPR EHENS ALEN METAB OLIC PANEL BUN 11 mg/dL 8-19 Not Available [facility] (Lab) [address] [place], [address], 12/05/2022 11:21:35 12/05/19 23 12/05/2022 COMPR EHENS ALEN METAB OLIC PANEL creatinine 0.73 mg/dL 0.66-1 .25 Not Available [facility] (Lab) [address] [place], [address], 12/05/2022 11:21:35 12/05/19 23 12/05/2022 COMPR EHENS ALEN METAB OLIC PANEL GFR >60 Refer ence Range : [place] GFR Healt hy Adult : >60 mL/mi n/1.7 3 m2 Chron ic Kidne y Disea se: 15-60 mL/mi n/1.7 3 m2 Kidne y Failu re: <15/m L/min /1.73 m2 www.n iddk. nih.g ov The MDRD study equat ion has not been valid ated in child allen <18 years of age; pregn ant women ; the elder ly >85 years of age; or in some racia l or ethni c subgr oups, such as Hispa nics. Outsi de the valid ated shaw eters , estim ated GFR is less accur ate, requi ring clini nhung judgm ent on a case- by-ca se basis . Clini nhung inter preta tion for other races and ages must be made by the clini vera. The MDRD study equat ion has not been valid ated for the evalu ation of serum creat inine relat ed to nutri amy l statu s or medic ation usage . For perso ns <18 years of age, a pedia tric GFR calcu lator is avail able on the [facility] websi te: https ://ww w.kid carri.o rg/pr ofess ional s/kdo qi/gf r_cal culat or Not Available [facility] (Lab) [address] [place], [address], 12/05/2022 11:21:35 12/05/19 23 12/05/2022 COMPR EHENS ALEN METAB OLIC PANEL alkaline phosphatase 70 U/L 38-126 Not Available [facility] (Lab) [address] [place], [address], 12/05/2022 11:21:35 12/05/19 23 12/05/2022 COMPR EHENS ALEN METAB OLIC PANEL alanine aminotransfe rase 18 U/L 0-35 Not Available [facility] (Lab) [address] [place], [address], 12/05/2022 11:21:35 12/05/19 23 12/05/2022 COMPR EHENS ALEN METAB OLIC PANEL aspartate aminotransfe rase 22 U/L 15-37 Not Available [facility] (Lab) [address] [place], [address], 12/05/2022 11:21:35 12/05/19 23 12/05/2022 COMPR EHENS ALEN METAB OLIC PANEL bilirubin, total 0.70 mg/dL 0.20-1 .30 Not Available [facility] (Lab) [address] [place], [address], 12/05/2022 11:21:35 12/05/19 23 12/05/2022 COMPR EHENS ALEN METAB OLIC PANEL calcium 8.8 mg/dL 8.4-10 .2 Not Available [facility] (Lab) [address] [place], [address], 12/05/2022 11:21:35 12/05/19 23 12/05/2022 COMPR EHENS ALEN METAB OLIC PANEL total protein 7.2 g/dL 6.3-8. 2 Not Available [facility] (Lab) [address] [place], [address], 12/05/2022 11:21:35 12/05/19 23 12/05/2022 COMPR EHENS ALEN METAB OLIC PANEL albumin 4.3 g/dL 3.4-5. 0 Not Available [facility] (Lab) [address] [place], [address], 12/05/2022 11:21:35 12/05/19 23 12/05/2022 COMPR EHENS ALEN METAB OLIC PANEL globulin 2.9 g/dL 2.6-4. 2 Not Available [facility] (Lab) [address] [place], [address], 12/05/2022 11:21:35 12/05/19 23 12/05/2022 COMPR EHENS ALEN METAB OLIC PANEL A/G ratio 1.5 ratio 1.0-2. 0 Not Available [facility] (Lab) [address] [place], [address], 12/05/2022 11:21:35 12/05/19 23 12/05/2022 CBC/C OMPLE TE BLD COUNT W/DIF F white blood cells 8.4 x10'3 /uL 4.2-10 .8 Not Available [facility] (Lab) [address] [place], [address], 12/05/2022 11:11:28 12/05/19 23 12/05/2022 CBC/C OMPLE TE BLD COUNT W/DIF F red blood cells 4.49 x10'6 /uL 3.80-5 .20 Not Available [facility] (Lab) [address] [place], [address], 12/05/2022 11:11:28 12/05/19 23 12/05/2022 CBC/C OMPLE TE BLD COUNT W/DIF F hemoglobin 13.5 g/dL 12.0-1 5.6 Not Available [facility] (Lab) [address] [place], [address], 12/05/2022 11:11:28 12/05/19 23 12/05/2022 CBC/C OMPLE TE BLD COUNT W/DIF F hematocrit 40.8 % 35.7-4 5.7 Not Available [facility] (Lab) [address] [place], [address], 12/05/2022 11:11:28 12/05/19 23 12/05/2022 CBC/C OMPLE TE BLD COUNT W/DIF F mean red cell volume 90.9 fL 82.0-9 9.0 Not Available [facility] (Lab) [address] [place], [address], 12/05/2022 11:11:28 12/05/1912/05/2022 CBC/C OMPLE TE BLD COUNT W/DIF F mean red cell hemoglobin 30.1 pg 27.0-3 3.0 Not Available [facility] (Lab) [address] [place], [address], 12/05/2022 11:11:28 12/05/19 23 12/05/2022 CBC/C OMPLE TE BLD COUNT W/DIF F mean RBC HGB concentratio n 33.1 g/dL 31.0-3 6.0 Not Available [facility] (Lab) [address] [place], [address], 12/05/2022 11:11:28 12/05/19 23 12/05/2022 CBC/C OMPLE TE BLD COUNT W/DIF F red cell distribution width 13.2 % 11.8-1 5.5 Not Available [facility] (Lab) [address] [place], [address], 12/05/2022 11:11:28 12/05/19 23 12/05/2022 CBC/C OMPLE TE BLD COUNT W/DIF F platelets 219 x10'3 /uL 150-40 0 Not Available [facility] (Lab) [address] [place], [address], 12/05/2022 11:11:28 12/05/19 23 12/05/2022 CBC/C OMPLE TE BLD COUNT W/DIF F mean platelet volume 10.9 fL 9.0-12 .4 Not Available [facility] (Lab) [address] [place], [address], 12/05/2022 11:11:28 12/05/19 23 12/05/2022 CBC/C OMPLE TE BLD COUNT W/DIF F neutrophils 63.6 % 39.0-7 2.0 Not Available [facility] (Lab) [address] [place], [address], 12/05/2022 11:11:28 12/05/19 23 12/05/2022 CBC/C OMPLE TE BLD COUNT W/DIF F lymphocytes 29.9 % 16.0-4 7.0 Not Available [facility] (Lab) [address] [place], [address], 12/05/2022 11:11:28 12/05/19 23 12/05/2022 CBC/C OMPLE TE BLD COUNT W/DIF F monocytes 5.3 % 5.0-12 .0 Not Available [facility] (Lab) [address] [place], [address], 12/05/2022 11:11:28 12/05/19 23 12/05/2022 CBC/C OMPLE TE BLD COUNT W/DIF F eosinophils 0.8 % 1.0-7. 0 low Not Available [facility] (Lab) [address] [place], [address], 12/05/2022 11:11:28 12/05/19 23 12/05/2022 CBC/C OMPLE TE BLD COUNT W/DIF F basophils 0.2 % 0.0-2. 0 Not Available [facility] (Lab) [address] [place], [address], 12/05/2022 11:11:28 12/05/19 23 12/05/2022 CBC/C OMPLE TE BLD COUNT W/DIF F immature granulocytes 0.2 % 0.00-0 .50 Not Available [facility] (Lab) [address] [place], [address], 12/05/2022 11:11:28 12/05/19 23 12/05/2022 CBC/C OMPLE TE BLD COUNT W/DIF F neutrophils, absolute count 5.35 x10'3 /uL 1.5-8. 0 Not Available [facility] (Lab) [address] [place], [address], 12/05/2022 11:11:28 12/05/19 23 12/05/2022 CBC/C OMPLE TE BLD COUNT W/DIF F lymphocytes, absolute count 2.52 x10'3 /uL 1.07-3 .43 Not Available [facility] (Lab) [address] [place], [address], 12/05/2022 11:11:28 12/05/19 23 12/05/2022 CBC/C OMPLE TE BLD COUNT W/DIF F monocytes, absolute count 0.45 x10'3 /uL 0.29-0 .99 Not Available [facility] (Lab) [address] [place], [address], 12/05/2022 11:11:28 12/05/19 23 12/05/2022 CBC/C OMPLE TE BLD COUNT W/DIF F eosinophils, absolute count 0.07 x10'3 /uL 0.02-0 .53 Not Available [facility] (Lab) [address] [place], [address], 12/05/2022 11:11:28 12/05/19 23 12/05/2022 CBC/C OMPLE TE BLD COUNT W/DIF F basophils, absolute count 0.02 x10'3 /uL 0.01-0 .08 Not Available [facility] (Lab) [address] [place], [address], 12/05/2022 11:11:28 12/05/19 23 12/05/2022 CBC/C OMPLE TE BLD COUNT W/DIF F immature granulocytes ,absolute 0.02 x10'3 /uL 0.00-0 .05 Not Available [facility] (Lab) [address] [place], [address], 12/05/2022 11:11:28 12/05/19 23 12/05/2022 CBC/C OMPLE TE BLD COUNT W/DIF F nucleated red blood cells 0.0 % -0 Not Available [facility] (Lab) [address] [place], [address], 12/05/2022 11:11:28 12/05/19 23 12/05/2022 CBC/C OMPLE TE BLD COUNT W/DIF F NRBC# 0.00 x10'3 /uL Not Available [facility] (Lab) [address] [place], [address], 12/05/2022 11:11:28 Result Notes None recorded. 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, high risk on cervical specimen 210532075 Active 2021 Not Available [facility] 3 02:33:45 Hyperglycemia 53576046 Active 2021 Not Available [facility] 3 02:33:45 Cigarette smoker 73272038 Active 2022 Eulalia harvey MD [address], [place], [address] , [email or web address] [facility] [employer] [facility] 3 09:34:43 Low back pain 476497683 Active 2022 Eulalia harvey MD [address], [place], [address] , [employer] [facility] 3 09:34:47 Generalized anxiety disorder 60223588 Active 2022 Eulalia harvey MD [address], [place], [address] , [email or web address] [facility] [employer] [facility] 3 09:34:59 Restless legs syndrome 68349487 Active 2022 Eulalia harvey MD [address], [place], [address] , [email or web address] [facility] [employer] [facility] 3 09:35:05 Environmental allergy 280349235 Active 2022 Eulalia harvey MD [address], [place], [address] , [email or web address] [facility] [employer] [facility] 3 09:35:17 Vitamin D deficiency 30245249 Active 2022 Eulalia harvey MD [address], [place], [address] , [facility] [employer] [facility] 3 15:27:31 Ingrowing toenail 673341207 Active 2022 Eulalia harvey MD [address] [place] [address], [address] , [facility] [employer] [facility] 3 15:36:06 Problem Notes None recorded. Procedures Surgical History Date Name Laterality Status Provider Name and Address Organization Details Recorded Time section completed Not Available [facility]alt 01/07/2023 02:30:59 Tubal Ligation completed [facility] 01/07/2023 02:30:59 Cholecystectomy completed Not Available [facility] 01/07/2023 02:30:59 Imaging Results None recorded. Procedure Notes None recorded. Medical Equipment None Reported. Allergies Allergen ID Allergen Name Allergen Category Reaction Reaction Severity Criticality Documentation Date Start Date Code Code System Note Provider Name and Address Organization Details Recorded Time 3433 Bactrim medicatio n hives Not available Not available 01/07/2023 63578 9 RxNorm Not Available [facility] 3 02:38:13 Medications Name Sig Start Date Stop Date Status Note LastModified by Organization Details LastModified Time cyclobenzap rine 10 mg tablet 03/04 completed Not Available Not Available Not Available buspirone 5 mg tablet TK 1 T PO BID active Not Available Not Available No t Available ropinirole 1 mg tablet Take 1 tablet(s) every day by oral route for 90 days. active Not Available Not Available No t Available ibuprofen 800 mg tablet 01/15 completed Not Available Not Available Not Available tizanidine 4 mg tablet TAKE 1 TABLET BY MOUTH EVERY 6 HOURS NEEDED DIRECTED TO RELAX MUSCLES 01/15 completed Not Available Not Available Not Available fluconazole 150 mg tablet TK 1 T PO FOR ONE DOSE active Not Available Not Available No t Available hydrocodone 5 mg-acetamin ophen 325 mg tablet TAKE 1 TABLET BY MOUTH EVERY 6 HOURS NEEDED FOR MODERATE TO SEVERE PAIN 05/07 completed Not Available Not Available Not Available fluconazole 200 mg tablet TAKE 2 TABLETS BY MOUTH EVERY 24 HOURS FOR 12 DAYS FOR ABDOMINAL INFECTION 05/07 completed Not Available Not Available Not Available meloxicam 15 mg tablet TAKE 1 TABLET BY MOUTH DAILY NEEDED FOR PAIN 01/15 completed Not Available Not Available Not Available metronidazo le 500 mg tablet TK 1 T PO BID FOR 7 DAYS active Not Available Not Available No t Available tramadol 50 mg tablet TAKE 1 TABLET BY MOUTH EVERY 6 HOURS WITH FOOD NEEDED FOR PAIN NOT RELIEVED BY MELOXICAM ALONE 03/04 completed Not Available Not Available Not Available meloxicam 7.5 mg tablet Take 1 tablet twice daily NEEDED ONLY. Must take with food active Not Available Not Available No t Available benzonatate 100 mg capsule TAKE 1 CAPSULE BY MOUTH TWICE DAILY 05/06 completed Not Available Not Available Not Available buspirone 30 mg tablet TAKE 1 TABLET BY MOUTH TWICE DAILY DIRECTED active Not Available Not Available No t Available ropinirole 0.5 mg tablet TAKE 1 TABLET BY MOUTH EVERY DAY AT BEDTIME 05/07 completed Not Available Not Available Not Available buspirone 10 mg tablet TAKE 2 TABLETS BY MOUTH THREE TIMES DAILY DIRECTED 01/15 completed Not Available Not Available Not Available nicotine 21 mg/24 hr daily transdermal patch UNWRAP AND APPLY 1 PATCH TO SKIN DAILY NEEDED FOR NICOTINE DEPENDENC Y 05/07 completed Not Available Not Available Not Available buspirone 7.5 mg tablet TAKE 1 TABLET BY MOUTH TWICE DAILY DIRECTED 01/15 completed Not Available Not Available Not Available diclofenac sodium 75 mg tablet,aidan yed release TAKE 1 TABLET BY MOUTH TWICE DAILY 01/15 completed Not Available Not Available Not Available diazepam 10 mg tablet 08/05 completed Not Available Not Available Not Available methylpredn isolone 4 mg tablets in a dose pack FOLLOW PACKAGE DIRECTION S 03/04 completed Not Available Not Available Not Available albuterol sulfate HFA 90 mcg/actuati on aerosol inhaler INHALE 2 PUFFS BY MOUTH FOUR TIMES DAILY NEEDED FOR SHORTNESS OF BREATH OR WHEEZING active Not Available Not Available No t Available fluticasone propionate 50 mcg/actuati on nasal spray,suspe nsion USE 1 SPRAY IN EACH NOSTRIL TWICE DAILY 04/24 completed Not Available Not Available Not Available loratadine 10 mg tablet TAKE 1 TABLET BY MOUTH DAILY 04/24 completed Not Available Not Available Not Available naproxen 500 mg tablet TAKE 1 TABLET BY MOUTH TWICE DAILY WITH MEALS 04/24 completed Not Available Not Available Not Available amoxicillin 875 mg-potassiu m clavulanate 125 mg tablet TAKE 1 TABLET BY MOUTH TWICE DAILY FOR 12 DAYS FOR ABDOMINAL INFECTION 05/07 completed Not Available Not Available Not Available buspirone 15 mg tablet TAKE 1 TABLET BY MOUTH THREE TIMES DAILY DIRECTED 04/24 completed Not Available Not Available Not Available tobramycin 0.3 %-dexametha sone 0.1 % eye drops,suspe nsion SHAKE LIQUID AND INSTILL 1 DROP IN RIGHT EYE FOUR TIMES DAILY FOR 7 DAYS 08/05 completed Not Available Not Available Not Available hydroxyzine pamoate 25 mg capsule TAKE 1 CAPSULE BY MOUTH THREE TIMES DAILY 01/15 completed Not Available Not Available Not Available escitalopra m 10 mg tablet TAKE 1 TABLET BY MOUTH EVERY DAY AT BEDTIME 05/07 completed Not Available Not Available Not Available escitalopra m 20 mg tablet TAKE 1 TABLET BY MOUTH EVERY DAY AT BEDTIME 12/16 completed Not Available Not Available Not Available bupropion HCl XL 300 mg 24 hr tablet, extended release TAKE 1 TABLET BY MOUTH EVERY DAY IN THE MORNING active Not Available Not Available No t Available bupropion HCl XL 150 mg 24 hr tablet, extended release TAKE 1 TABLET BY MOUTH EVERY DAY IN THE MORNING 01/15 completed Not Available Not Available Not Available Vitamin C 2T PO QD 2019 active Not Available Not Available Not Avai lable calcium 1T PO QD 2019 active Not Available Not Available Not Avai lable Fish Oil 1T PO QD 2019 active Not Available Not Available Not Avai lable Vitamin D TK 1T PO QD 2019 active Not Available Not Available Not Avai lable One A Day Vitamin 1T PO QD 2019 active Not Available Not Available Not Avai lable naloxone 4 mg/actuatio n nasal spray CALL 911. SPR CONTENTS OF ONE SPRAYER (0.1ML) INTO ONE NOSTRIL. REPEAT IN 2-3 MIN IF SYMPTOMS OF OPIOID EMERGENCY PERSIST, ALTERNATE NOSTRILS 05/07 completed Not Available Not Available Not Available COVID-19 test specimen collection TEST DIRECTED TODAY 01/15 completed Not Available Not Available Not Available Fluarix Quad (PF) 60 mcg (15 mcg x 4)/0.5 mL IM syringe active Not Available Not Available N ot Available Vitals Date Recorded Body mass index (BMI) Body height Heart rate Body temperature Body weight Systolic And Diastolic Provider Name and Address Organization Details Last Updated DateTime 3 34.5 kg/m2 162.56 cm 72 /min 97 [degF] 23948.0 7 g 120/68 mm[Hg] Not Available [facility] 3 02:32:47 Date Recorded Body mass index (BMI) Body height Oxygen saturation Oxygen saturation in Arterial blood by Pulse oximetry Heart rate Body temperature Body weight Systolic And Diastolic Provider Name and Address Organization Details Last Updated DateTime 2 37.4 kg/m2 162.56 cm 98 % 98 % 78 /min 97.7 [degF] 93215.1 4 g 128/80 mm[Hg] Not Available [facility] 3 02:32:47 Date Recorded Body mass index (BMI) Body height Heart rate Body temperature Body weight Systolic And Diastolic Provider Name and Address Organization Details Last Updated DateTime 2 37.1 kg/m2 162.56 cm 78 /min 97.8 [degF] 30282.9 5 g 120/76 mm[Hg] Not Available [facility] 3 02:32:47 Date Recorded Body height Body mass index (BMI) Body weight Body temperature Heart rate Systolic And Diastolic Provider Name and Address Organization Details Last Updated DateTime 3 162.56 cm 33.3 kg/m2 83705.9 2 g 97.7 [degF] 84 /min 120/60 mm[Hg] MONA Singh [facility] [employer] [facility] 3 15:15:44 Date Recorded Body mass index (BMI) Body height Heart rate Body temperature Body weight Systolic And Diastolic Provider Name and Address Organization Details Last Updated DateTime 2 35.7 kg/m2 162.56 cm 66 /min 97 [degF] 80697.2 1 g 128/72 mm[Hg] Not Available [facility] 3 02:32:47 Social History Question Answer Notes LastModified by Organization Details LastModified Time Tobacco Smoking Status Former Smoker quit 12/2022 MONA Singh [place] [facility] [employer] [facility] 05/07/2023 15:14:00 Do You Have An Advance Directive? No MIGRATION.0301 [id number] Information not available 01/07/2023 What Is Your Level Of Caffeine Consumption? Occasional MIGRATION.0301 133598 Information not available 01/07/2023 How Much Tobacco Do You Chew? None MIGRATION.0301 [id number] Information not available 01/07/2023 In The 14 Days Before Symptom Onset, Have You Had Close Contact With A Laboratory-confi rmed COVID-19 While That Case Was Ill? No MIGRATION.0301 [id number] Information not available 01/07/2023 In The 14 Days Before Symptom Onset, Have You Had Close Contact With A Person Who Is Under Investigation For COVID-19 While That Person Was Ill? No MIGRATION.0301 243989 Information not available 01/07/2023 What Type Of Diet Are You Following? REGULAR MIGRATION.030 994579 Information not available 01/07/2023 Which Illicit Or Recreational Drugs Have You Used? None MIGRATION.0301 417357 Information not available 01/07/2023 What Is The Highest Grade Or Level Of School You Have Completed Or The Highest Degree You Have Received? [id number] MIGRATION.030 248922 Information not available 01/07/2023 Have There Been Any Changes To Your Family Or Social Situation? No MIGRATION.0301 286610 Information not available 01/07/2023 What Is The Fluoride Status Of Your Home? Unknown MIGRATION.0301 004099 Information not available 01/07/2023 When Did You Quit Smoking? 1-5yearssincelastc igarette Information not available 05/07/2023 Are There Any Guns Present In Your Home? No MIGRATION.0301 966026 Information not available 01/07/2023 Do You Use Insect Repellent Routinely? No MIGRATION.0301 [id number] Information not available 01/07/2023 Where Do You Live? SingleLevelHouse MIGRATION.0301 789858 Information not available 01/07/2023 Do You Have A Medical Power Of Regroover? No MIGRATION.0301 391263 Information not available 01/07/2023 What Was The Date Of Your Most Recent Tobacco Screening? 12/16/2022 MIGRATION.0301 550339 Information not available 01/07/2023 Do You Have Any Pets? Yes MIGRATION.0301 409879 Information not available 01/07/2023 What Is Your Relationship Status? MIGRATION.0301 919557 Information not available 01/07/2023 Do You Use Your Seat Belt Or Car Seat Routinely? Yes MIGRATION.0301 418502 Information not available 01/07/2023 Do You Have Smoke And Carbon Monoxide Detectors In Your Home? Yes MIGRATION.0301 393299 Information not available 01/07/2023 At What Age Did You Start Smoking Tobacco? 16 MIGRATION.0301 974661 Information not available 01/07/2023 Are You Passively Exposed To Smoke? Yes MIGRATION.0301 249798 Information not available 01/07/2023 Are There Any Smokers In Your House? Yes MIGRATION.0301 017855 Information not available 01/07/2023 How Much Tobacco Do You Smoke? No Was 1/ Ppd Information not available 05/07/2023 What Types Of Sporting Activities Do You Participate In? None MIGRATION.0301 745589 Information not available 01/07/2023 Do You Use Sunscreen Routinely? No MIGRATION.0301 228204 Information not available 01/07/2023 How Many Years Have You Smoked Tobacco? 24 Started Smoking At 16 Yrs Old MIGRATION.0301 633194 Information not available 01/07/2023 Have You Recently Traveled Abroad? No MIGRATION.0301 198609 Information not available 01/07/2023 Do You Have Any Dietary Restrictions? No MIGRATION.0301 837325 Information not available 01/07/2023 Sex: Female Functional Status Question Answer Note LastModified by Organizat ion Details LastModified Time Do you use any illicit or recreational drugs? No MIGRATION.855739 8444 Information not available 01/07/2023 Do you or have you ever used any other forms of tobacco or nicotine? No MIGRATION.135141 9414 Information not available 01/07/2023 What is your level of alcohol consumption? None MIGRATION.322251 3989 Information not available 01/07/2023 Do you or have you ever used smokeless tobacco? 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 Never used electronic cigarettes MIGRATION.893107 6500 Information not available 01/07/2023 What is your exercise level? Moderate MIGRATION.319079 5689 Information not available 01/07/2023 Mental Status Question Answer Note LastModified by Organizat ion Details LastModified Time Do you feel stressed (tense, restless, nervous, or anxious, or unable to sleep at night)? [id number] MIGRATION.[id number] 6 Information not available 01/07/2023 Family History Relationship Description Onset Age of this Age Resolved Age Notes LastModified by Organization Details LastModified Time Paternal Grandmother Diabetes mellitus MIGRATION.348 [id number] Not available 01/07/2023 02:31:03 Mother Family history of malignant neoplasm MIGRATION.603 [id number] Not available 01/07/2023 02:31:03 Brother Malignant neoplasm of kidney 42 MIGRATION.866 [id number] Not available 01/07/2023 02:31:03 Medical History Condition Response NERVE DISEASE Y BLINDNESS N RHEUMATIC FEVER N KIDNEY STONES N BLADDER PROBLEMS N MRSA N OTHER # 1 N POLIO N LUNG DISEASE/DISORDER N HISTORY OF DRUG ABUSE N RADIATION / CHEMOTHERAPY N COPD N Other # 2 N BLOOD DISEASES N EAR OR HEARING PROBLEMS N MUMPS N SHINGLES N BOWEL PROBLEMS N DEPRESSION (INCLUDING POST ) N STROKE/TIA N ULCERS N BENIGN PROSTATIC HYPERPLASIA N MEASLES N HYPOTENSION N MYOCARDIAL INFARCTION N OBESITY N GERD/NAUSEA N ANEURYSM N URINARY/BLADDER/KIDNEY PROBLEMS N CORONARY ARTERY DISEASE (CAD) N ADDICTION CONCERNS N Impotence N ENDOMETRIOSIS N USE OF BLOOD THINNERS N SKIN PROBLEMS N GASTROINTESTINAL DISORDER N PERIPHERAL VASCULAR DISEASE N MUSCLE,JOINT OR BONE PROBLEMS N GASTROINTESTINAL BLEEDING N BLOOD CLOTS N ASTHMA N CATARACTS N ERECTILE DYSFUNCTION N VARICOSITIES N GI PROBLEMS N Low Testosterone N INFERTILITY N AIDS/HIV N CHEMOTHERAPY / RADIATION N LIVER DISEASE N MALE HYPOGONADISM N HYPERTENSION N Deficiency N TOURETTE'S N ANXIETY DISORDER Y BLOOD TRANSFUSION N ANEMIA/BLOOD DISORDER N CHRONIC EAR INFECTIONS N BRONCHITIS N TUBERCULOSIS N GLAUCOMA N FOOT PROBLEM N DIVERTICULITIS N SLEEP APNEA N CHICKENPOX N INFECTIOUS DISEASE N PROSTATE N HEART ARRHYTHMIA N INSOMNIA N HIGH CHOLESTEROL / HYPERLIPIDEMIA N EYE PROBLEMS N HYPERTHYROIDISM N EDEMA N CHRONIC PAIN SYNDROME N HYPOTHYROIDISM N CONSTIPATION N CAROTID BLOCKAGE N BACK / NECK PROBLEMS Y ATHEROSCLEROSIS N BREAST PROBLEMS N DIALYSIS N ECZEMA N OSTEOPOROSIS N ARTHRITIS N APPENDICITIS N DIABETES, TYPE N BAD TEETH N ENT N HEARTBURN / REFLUX N AUTISM SPECTRUM DISORDER (ASD) N HEPATITIS / LIVER DISEASE N GOUT N SLEEP DISORDER N ALZHEIMER'S DISEASE N Brain Problems N DEMENTIA N HERPES N SEIZURES/EPILEPSY N HEADACHES/MIGRAINES Y VASCULAR DISEASE N PACEMAKER N Blood Disorder N DIZZINESS N HEART DISEASE/HEART PROBLEMS N KIDNEY DISEASE N MULTIPLE SCLEROSIS N CANCER: SPECIFY N CARDIAC ARRHYTHMIA N ATRIAL FIBRILLATION N Gall Stones N PULMONARY EMBOLISM N AUTOIMMUNE DISEASE N Gynecological HistoryNo gynecological history recorded. Obstetrics History GPAL:G 0 P 0 0 0 0 Immunizations Vaccine Type Date Status Note Provider Nam e and Address Organization Details Recorded Time Influenza, split virus, quadrivalent, preservative 0 completed Not Available [facility] 01/07/2023 02:38:07 Influenza, split virus, quadrivalent, PF 3 completed Not Available [facility] 01/07/2023 02:38:07 Influenza, split virus, quadrivalent, PF 2 completed Not Available [facility] 01/07/2023 02:38:07 Past Encounters Encounter ID Performer Location Encounter Start Date Encounter Closed Date Diagnosis/Indication Diagnosis SNOMED-CT Code Diagnosis ICD10 Code Diagnosis IMO Codes Diagnosis Note [id number] Eulalia harvey MD S[facility] [place] Internal Med [facility] [address] [facility] [address] [address] 02/14/2021 00:00:00 02/14/2021 17:48:45 [id number] Duane Choi MD [facility]_[address] [place] [address] 03/29/2021 00:00:00 03/29/2021 09:57:03 [id number] Eulalia harvey MD S_[facility] Internal Med Ling alvarez [address] [facility] [place] [address] 05/06/2021 00:00:00 05/06/2021 17:15:24 [id number] Eulalia harvey MD S_[facility] Internal Med [facility] [address] [facility] [address] [address] 01/15/2022 00:00:00 01/23/2022 18:27:38 [id number] Eulalia harvey MD S_[facility] Internal Med [facility] [address] [place] [employer] [address] [address] 03/04/2022 00:00:00 03/04/2022 12:22:21 [id number] MD ERIC CrowS_G Internal Med [facility] [address] [place] [employer] [address] 04/24/2022 00:00:00 04/24/2022 15:55:25 [id number] MD ERIC CrowS_[facility] Internal Med [facility] [address] [place] [employer] [address] 08/05/2022 00:00:00 08/05/2022 12:27:47 [id number] MD ERIC CrowS_[facility] Internal Med [facility] [address] [place] [employer] [address] 12/16/2022 00:00:00 12/16/2022 12:01:10 [id number] Aric Lozano MD [facility] [address] [place] [address] [address], [address] [address] 01/18/2021 00:00:00 01/18/2021 12:16:26 [id number] Aric Lozano MD [facility] [address] [place] [address] [address] 2021 00:00:00 2021 12:24:39 [id number] [facility] [address] [place] [address] [address] 04/15/2021 00:00:00 04/15/2021 15:10:30 [id number] Aric Lozano MD [facility] [address] [place] [address] [address] 07/29/2021 00:00:00 07/29/2021 15:29:46 [id number] Aric Lozano MD [facility] [address] [place] [address] [address] 08/26/2021 00:00:00 08/26/2021 14:49:02 [id number] Natalee Tripp NP S_[facility] [address] [place] [address] [address] 10/17/2021 00:00:00 10/17/2021 16:44:02 [id number] [facility] [address] [place] [address] [address] 11/26/2021 00:00:00 11/26/2021 17:02:07 [id number] [facility] [address] [place] [address] [address] 12/25/2021 00:00:00 12/25/2021 18:22:41 [id number] [facility] [address] [place] [address] [address] 01/22/2022 00:00:00 01/22/2022 18:37:15 [id number] [facility] [address] [place] [address] [address] 02/19/2022 00:00:00 02/19/2022 17:30:14 [id number] [facility] [address] [place] [address] [address] 03/31/2022 00:00:00 03/31/2022 18:15:26 [id number] [facility] [address] [place] [address] [address] 05/29/2022 00:00:00 05/29/2022 18:47:52 [id number] [facility] [address] [address] 08/28/2022 00:00:00 08/28/2022 15:48:31 [id number] Natalee Tripp NP [facility] [address] [address] 10/22/2022 00:00:00 10/22/2022 14:39:35 [id number] Natalee Tripp NP [facility] [address] [address] 01/13/2023 16:11:29 01/13/2023 18:31:23 [id number] Natalee Tripp NP [facility] [address] [address] 03/10/2023 12:12:19 03/10/2023 13:57:47 [id number] Natalee Tripp NP [facility] [address] [address] 04/08/2023 11:09:12 04/08/2023 11:50:02 [id number] Natalee Tripp NP [facility] [address] [address] 04/29/2023 11:35:09 04/29/2023 12:05:22 [id number] Eulalia harvey MD S_G Internal Med [facility] [address]43 [facility], [address] [address] 05/07/2023 15:04:20 05/07/2023 15:37:24 Screening - NAD [id number] Z13.9 C-scope: Dr Kei Pozo 02/26/2023 , bx shows cecal polyp UTD on yearly flu shotGet tdap if not doneGet COVID 19 vaccine follow CDC guidelines PAP: She will call for an OB apt with the same that her sister in law [id number]: Dr Tim keller MD [facility]: Referred to [facility] Alvarenga at [facility], but she did not see them as she could not afford the payments to do the testing 12/16/2022 : Referred to Dr Owusu RTC in 6 monthsDo labs thenER if Nedra did verbalize her understand ing of the above Cigarette smoker [id number] F17.210 Advised to quit smoking! Low back pain [id number] M54.[address] Miller Not on any meds now at this time OV 05/06/2021 :[facility] nowOn tizanidine 4mg dailyOn tramadol 50mg q 6 hoursAdvis ed to take these PRNThis is work related as she works in [employer] and has to do very heavy lifting pulling and pushingGet xrays and also note for work done OV 01/15/2022 :Get on tramadol PRNNeeds to do PTRestrict ed duty OV 03/04/2022 :Still c/o LBP, now states that this is Work Related, explained that she will now have to see a Work Comp MD for further care, she states that now she has a 'conference planner'Di d provide her with a note for work till cleared by her work comp MD as per her requestDon e with PT OV 04/24/2022 :[facility] [place] 08/05/2022 :Sees her work comp ortho surgeon Dr Gonzalez, has an apt in 2Off work as her job fired her OV 12/16/2022 :Sees her work comp MD for this OV 05/07/2023 : Sees her Work comp doctor Generalize d anxiety disorder 70262424 F41.1 On buspirone 30mg bidOn bupropion XL 300mg dailyNot on escitalopr am 20mg dailyNot suicidal or homicidalS ees psychiatry Crystal Qasim PEREZ Restless l egs syndrome [id number] G25.81 On the requip 0.5mg daily, increase to 1mg daily, will need to see neurology if she requires more dose adjustment 05/07/2023 Does well Environmental allergy 42 [id number] T78.49XD On albuterolO n flonaseOn claritin Long-term drug therapy [id number] Z79.899 Vitamin D deficiency 347 68023 E55.9 Adult heal th examination [id number] Z00.00 Depression screening 171 976513 Z13.31 Ingrowing toenail 224158 009 L60.0 Get a referral to podiatry, noted on melissa big toes [id number] Natalee Tripp NP [facility] [address] [address] 06/04/2023 16:37:05 06/05/2023 10:31:56 [id number] Natalee Tripp NP [facility] [address] [address] 10/20/2023 10:58:43 10/20/2023 12:00:02 [id number] Natalee Tripp NP [facility] [address] [address] 12/15/2023 11:32:51 12/15/2023 11:55:16 [id number] Natalee Tripp NP [facility] [address] [address] 04/12/2024 12:30:21 04/12/2024 12:58:17 [id number] Natalee Tripp NP [facility] [address] [address] 07/20/2024 16:45:30 07/20/2024 17:15:58 [id number] Natalee Tripp NP [facility] [address] [address] 10/31/2024 10:15:41 10/31/2024 10:38:03 Health Concerns Section Related Observation LastModified by Organization Detai ls LastModified Time None Recorded Concern Status LastModified by Organization Details LastModified Time None Recorded Advance Directives Directive N: Payers Insurance Date Sequence Insurance Name Policy Number Policy Cosby Covered Member ID Cosby Member ID Guarantor Name 07/20/2024 2 MEDICAID-[place]: [facility] Jigna Mai [id number] Jigna Mai 05/03/2025 1 [facility] Jigna A Sconce [id number] Jigna Sconce 07/20/2024 2 [facility] - DOS ON OR AFTER 21 (MEDICAID REPLACEMENT - HMO) Jigna Sconce [id number] Jigna Sconce 07/20/2024 2 MEDICAID[place]: [place] [facility] Jigna Sconce [id number] Jigna Sconce 07/20/2024 [facility] S[facility] Jigna Sconce 07/20/2024 1 [facility] (MEDICAID HMO) [id number] Jigna Christiana [id number] Jigna Sconce 01/07/2023 [employer] Jigna Sconce Notes Date Note Type Note Provider Name and Address Organization Details Recorded Time 05/07/2023 text/html OV 09/04/2020:Here to establish carePast Hx:AnxietyLBPRevie wed social family and surgical historyHere as she has not been to a PMD for 9 years or more and wants to discuss getting back on the anxiety medicationsShjesi does not recall the name of the last med she was on for this, she denies any suicidal or homicidal ideation or attempts, she denies any hallucinations, delusions, paranoia or sleep or eating disordersShe is here with the boy friendShe also states that she has 'sciatica' and has been told that she has 'bulging discs', she c/o LBP that is located in the small of the back and makes the side of her both thighs 'tight'She denies any N/T or weakness in the melissa LE, she states the about 10 years ago she did get a MRI of the backShe also continues to smokeShe has not had any recent labs OV 10/09/2020:Here for her one month follow upShe feels well todayErika has done her labsShe has done her WWE on 09/11/2020 and was to get a breast USShe has also seen Dr Miller on 09/24/2020She is now scheduled to see the psychiatrist on 10/15/2020 OV 05/06/2021:Here for her routine apt and post ER aptShe states that she was seen for LBPFeels better now, no N/T or weakness in the legs, no loss of bowel or bladder controlNo new labs OV 01/15/2022:Here for c/o LBP no N/T or weakness in the legs, no loss of bowel or bladder controlWas lifting a box at work and this caused her to get LBP, was seen in the UC given xrays and ibuprofen but this has not helpedNo recent labs OV 03/04/2022:Here for her routine aptShe is doing well, but still has LBP, now claims that this is work relatedNo recent labs noted OV 04/24/2022:Here for her routine apt and well ness visitShe is doing wellNo recent labs noted OV 08/05/2022:Here for her f/u apt, she is doing well, she did do the labs on 06/13/2022, continues to have LBP, is seeing her work comp ortho surgeon OV 12/16/2022:Here for her f/u apt, she is doing well, she did the labs on 12/05/2022 OV 05/07/2023: Here for her f/u apt, she would like to increase the dose of the requip, is doing well otherwise, needs to do the labs Eulalia Solares MD [address] [place] [address], [place] [address], [place], [address], [place] [facility] 05/07/2023 16:01:10 OBGyn Episode No OBEpisode recorded.
--- OUTSIDE RECORDS SUMMARY | 2025-08-12 09:01 | XMS_ITS | Clinical Summary ---
Author Organization [facility] Address [address] [facility] [address] [place] [address] Phone Care Team Providers Care Slag Worker Name Role Phone Sánchez Choudhury MD Unavailable Tahmina Rutledge PAC Primary Care Provider [phone] Allergies Active Allergy Reactions Criticality Noted Date Comments Sulfamethoxazole-Trimethoprim Hives 2016 Oseltamivir Hives Medium Medications buPROPion (WELLBUTRIN) 300 MG TABLET SR 24 HR XL tablet Take 300 mg by mouth every morning. Active busPIRone HCl (BUSPAR) 30 MG Tablet Take by mouth in the morning and at bedtime. 3 Active rOPINIRole (REQUIP) 0.5 MG Tablet Take by mouth nightly. 2 Active Multiple Vitamins-Mineral s (WOMENS ONE DAILY PO) Take by mouth. Active Delaplane-3 Fatty Acids (FISH OIL PO) Take by mouth. Active Cholecalciferol (VITAMIN D-3 PO) Take by mouth. Active Inulin (FIBER CHOICE PO) Take by mouth. Active Probiotic Product (PROBIOTIC-10 PO) Take by mouth. Active Ascorbic Acid (VITAMIN C PO) Take by mouth. Active CALCIUM PO Take by mouth. Active sertraline (ZOLOFT) 50 MG Tablet Take 50 mg by mouth daily. Active HYDROcodone-acet aminophen (NORCO) 5-325 MG TabletIndication s:RLQ abdominal pain Take 1 Tablet by mouth every 4 hours as needed for Moderate or more severe pain. 12 Tablet 3 Active metroNIDAZOLE (Flagyl) 500 MG Tablet Take 1 Tablet by mouth 3 times daily. 30 Tablet 4 Active ondansetron (ZOFRAN-ODT) 4 MG TABLET DISPERSIBLE Take 1 Tablet by mouth every 8 hours as needed for Nausea - 1st line. 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amm[facility] [address] [place] [address] Katie Lorenzo APRN, SOPHIA 06/16/2025 Transcribe Orders [facility] Central Scheduling [address] [place] [address] Katie Lorenzo APRN, TEA BAG PACKER Abnormality of left breast on screening mammogram (Primary Dx) 06/14/2025 4:00 PM CDT - 06/14/2025 11:59 PM CDT Hospital Encounter [facility]amm[facility] [address] [place] [address] Katie Lorenzo APRN, TEA BAG PACKER Discharge Disposition: Discharged to home or Selfcare 06/14/2025 Travel 06/05/2025 Transcribe Orders [facility] Central Scheduling [address] [place] [address] Katie Lorenzo APRN, TEA BAG PACKER Breast cancer screening by mammogram (Primary Dx) from Last 3 Months Immunizations Immunization Administration Dates Next Due Influenza Vaccine, Quadrivalent, PF 07/2022,08/12/2020,12/13/2019, 017 Family History Medical History Relation Name Comments Cancer Brother Kidney Cancer Brother No Known Problems Daughter Alcohol Abuse Father Cancer Father No Known Problems Maternal Grandfather No Known Problems Maternal Grandmother Cancer Mother Cervical Cancer Mother Other-comment Mother Cholecystectom y No Known Problems Other No Known Problems Paternal Grandfather Diabetes Paternal Grandmother No Known Problems Son Relation Name Status Comments Brother Alive Daughter Alive Father Maternal Grandfather Maternal Grandmother Mother Alive Other Paternal Grandfather Paternal Grandmother Son Alive Social History Tobacco Use Types Packs/Day Years Used Date Smoking Tobacco: Former Cigarettes 0.5 23.1 2 000 - 12/23/2022 Smokeless Tobacco: Never Tobacco Cessation:Counseling Given: Not Answered Alcohol Use Standard Drinks/Week Comments No 0 (1 standard drink = 0.6 oz pur e alcohol) PHQ-2 Answer Date Recorded Total Score - Questions 1-9 0 01/07 Sexually Active Control Partners Comments Yes Male Comments No Sex and Gender Information Value Date Recorded Sex Assigned at Not on file Legal Sex Female 2:33 PM CDT Gender Identity Not on file Sexual Orientation Not on file Last Filed Vital Signs Vital Sign Reading Time Taken Comments Blood Pressure 92/58 08/29/2024 6:45 PM CDT Pulse 66 08/29/2024 8:02 PM CDT Temperature 36.3 C (97.3 F) 08/29/2024 2:00 PM CDT Respiratory Rate 18 08/29/2024 8:02 PM CDT Oxygen Saturation 97% 08/29/2024 8:02 PM CDT Inhaled Oxygen Concentration - - Weight 86.2 kg (190 lb) 08/29/2024 2:00 PM CDT Height 165.1 cm (5' 5) 08/29/2024 2:00 PM CDT Body Mass Index 31.62 08/29/2024 2:00 PM CDT Plan of Treatment Health Maintenance Due Date Last Done Comments Hepatitis C Virus (HCV) Screening 1985 Hepatitis B Immunization (1 of 3 - 19+ 3-dose series) 02/23/2004 Pap Smear 2006 Human Papillomavirus (HPV) Immunization (1 - 3-dose SCDM series) 02/23/2012 Cervical Cancer Screening (CCS) 2015 HPV/Cotest 2015 Influenza Immunization (#1) 2025 02/0 05/2023, 01/15/2022, 08/12/2020, Additional history exists SARS-COV-2 Immunization ( season) 2025 Mammogram 06/14/2026 06/14/2025 Colonoscopy 02/26/2033 02/26/2023, 02/26/2023 Colorectal Cancer Screening 02/26/2033 Respiratory Syncytial Virus (RSV) Immunization (Adult) (1 - 1-dose 75+ series) 02/23/2060 TdaP Immunization Completed 05/20/2023 Discussion re Starting/Frequency of Mammograms Completed 06/14/2025 Meningococcal Immunization (ACWY) Aged Out No longer eligible based on patient's age to complete this topic Pneumococcal Immunization Combined Aged Out No longer eligible based on patient's age to complete this topic Rotavirus Immunization Aged Out No lo nger eligible based on patient's age to complete this topic Medical Devices Implanted Type Area Municipal Clerk Device Identifier Shelf Expiration Date Model / Serial / Lot Clip Hemostatic Resolution 360 Ultra 17mm Opening 235cm Rotatable Control [place] [employer] - [id number] Implanted:Qty: 1 on 02/26/2023 by Sánchez Choudhury MD at [facility] IMPLANT N/A: Colon [employer] 12/31/2024 [id number] / [id number] / [id number] Procedures Procedure Name Priority Date/Time Associated Diagnosis Comments MIKEY SCREENING BILATERAL DIGITAL W CAD W PAVEL Routine 06/14/2025 4:27 PM CDT Breast cancer screening by mammogram from Last 3 Months Results * MIKEY SCREENING BILATERAL DIGITAL W CAD W PAVEL (06/14/2025 4:27 PM CDT) Anatomical Region Laterality Modality breast Bilateral Mammography 06/14/2025 4:24 PM CDT Narrative 06/16/2025 7:52 AM CDT - MIKEY SCREENING BILATERAL DIGITAL W CAD W PAVEL BILATERAL DIGITAL SCREENING MAMMOGRAM 3D/2D WITH CAD WITH MEDIOLATERAL OBLIQUE CRANIOCAUDAL: 06/14/2025 The study was acquired using digital technology and interpreted from soft copy. Current study was also evaluated with ICAD version 7.2. 2D digital mammographic views, as well as 3D digital tomosynthesis were performed in the CC and MLO projections. CLINICAL: Baseline screening. Patient has no complaints, only chronic diffuse tenderness due to breast size per patient. No personal history of breast cancer. Maternal great aunt had breast cancer. COMPARISONS: No prior exams were available for comparison. BREAST TISSUE:There are scattered areas of fibroglandular density. FINDINGS: There is an asymmetry in the left breast middle depth superior region seen on the mediolateral oblique view only. No other significant masses, calcifications, or other findings are seen in either breast. IMPRESSION: INCOMPLETE: NEED ADDITIONAL IMAGING EVALUATION The asymmetry in the left breast is indeterminate. An immediate follow-up is recommended. A letter will be sent to the patient with these results. Electronically signed by: Liz nguyen/audrey:06/15/2025 21:19:16 Pharmacy Manager(s): RT Leona(R)(M), [facility] letter sent: Additional Imaging Reading location: [facility] Mammogram BI-RADS: Category 0: Incomplete: Need Additional Imaging Evaluation Procedure Note Liz Younger MD - 06/16/2025 - MIKEY SCREENING BILATERAL DIGITAL W CAD W PAVEL BILATERAL DIGITAL SCREENING MAMMOGRAM 3D/2D WITH CAD WITH MEDIOLATERAL OBLIQUE CRANIOCAUDAL: 06/14/2025 The study was acquired using digital technology and interpreted from soft copy. Current study was also evaluated with ICAD version 7.2. 2D digital mammographic views, as well as 3D digital tomosynthesis were performed in the CC and MLO projections. CLINICAL: Baseline screening. Patient has no complaints, only chronic diffuse tenderness due to breast size per patient. No personal history of breast cancer. Maternal great aunt had breast cancer. COMPARISONS: No prior exams were available for comparison. BREAST TISSUE:There are scattered areas of fibroglandular density. FINDINGS: There is an asymmetry in the left breast middle depth superior region seen on the mediolateral oblique view only. No other significant masses, calcifications, or other findings are seen in either breast. IMPRESSION: INCOMPLETE: NEED ADDITIONAL IMAGING EVALUATION The asymmetry in the left breast is indeterminate. An immediate follow-up is recommended. A letter will be sent to the patient with these results. Electronically signed by: Liz nguyen/audrey:06/15/2025 21:19:16 Pharmacy Manager(s): RT Leona(R)(M), [facility] letter sent: Additional Imaging Reading location: [facility] Mammogram BI-RADS: Category 0: Incomplete: Need Additional Imaging Evaluation us Katie Lorenzo ASSISTANT HEAD CASHIER, TEA BAG PACKER IMG MAMMO ORDERABLES Fin al Result from Last 3 Months Insurance MEDICAID [place] [facility] Advance Directives * Full Code (Latest Code Status on File) Date Activated Date Inactivated Comments 12/22/2022 3:57 PM 12/25/2022 3:47 PM CPR-Full Ivan atment: FULL ARREST: Attempt Resuscitation/CPR wit intubation and mechanical ventilation. PRE-ARREST: Use entire range of life support measures to stabilize the patient. Care Teams Slag Worker Relationship Specialty Start Date End Date Tahmina Rutledge, PAC [address] [place] [address] PCP - General Physician Quality Associate 05/08/24 Sánchez Choudhury MD [address] [address] Consulting Physician Colon and Rectal Surgery 12/29/22
[2025-08-12 09:02] VITALS: BP 115/71; PULSE 89; RESP 20; TEMP 36.4; O2SAT 97
--- NOTE | 2025-08-12 09:20 | ED_ITS ---
HPI - Ear Problem General Chief complaint: Ear Stated complaint: right ear Time Seen by Provider: 08/12/25 09:05 Source: patient and RN notes reviewed Mode of arrival: ambulatory Limitations: no limitations History of Present Illness HPI Narrative: 40-year-old female presents Express Care complaining of right ear pain for approximately 2-3 days. Patient reports 2 weeks ago she started with upper respiratory symptoms, cough, congestion, runny nose, headaches. Patient says most of her symptoms resolved however she continues the right ear pain, some congestion, nasal drainage. Patient denies any chest pain, shortness of breath, nausea vomiting, diarrhea, abdominal pain, fevers, body aches, chills, or any other symptoms. Patient taking Tylenol help with symptoms. Related Data Home Medications ?Medication ?Instructions ?Recorded ?Confirmed ?Last Taken ?Type buspirone 30 mg tablet 30 mg PO BID 12/22/22 Unknown History cyclobenzaprine 5 mg tablet mg 08/12/25 Unknown Histo ry metoprolol succinate 25 mg mg PO 08/12/25 Unknown His tory tablet,extended release 24 hr sertraline 100 mg tablet mg 08/12/25 Unknown History Allergies Allergy/AdvReac Type Severity Reaction Status Date / Time sulfamethoxazole (From Allergy Intermediate Hives Verified 08/12/25 09:07 Bactrim) trimethoprim (From Bactrim) Allergy Intermediate Hives Verified 08/12/25 09:07 Review of Systems Review of Systems: CONSTITUTIONAL: Denies fever, chills, or sweats. EYES: Denies visual changes, redness, or discharge. ENT: Denies rhinorrhea, sore throat. Positive for otalgia, congestion CARDIOVASCULAR: Denies chest pain, palpitations, or edema. RESPIRATORY: Denies cough or dyspnea. GASTROINTESTINAL: Denies abdominal pain, nausea, vomiting, or diarrhea. GENITOURINARY: Denies dysuria or hematuria. SKIN: Denies rash or itching. MUSCULOSKELETAL: Denies back pain, joint pain, or myalgia. NEUROLOGIC: Denies headache, numbness, or weakness. PSYCHIATRIC: Denies anxiety or depression. All other systems reviewed are negative, except as documented in HPI. [facility], [facility] Past Medical History Medical History Chronic back pain Smoker Depression Anxiety delivery delivered Bronchitis Surgical History Surgical History History of tubal ligation H/O section X2 History of cholecystectomy Family History Family History Father , Related to cancer, type unknown to Jigna Cancer Mother Alive and well Social History Social History Smoking packs per day: 0.5 Smoking cigarettes per day: 10.0 Years smoked: 20 Smoking pack-years: 10.00 Smoking status: Current every day smoker Tobacco type: cigarettes Second hand tobacco smoke exposure: Yes Alcohol intake: never Substance use: never Living arrangements: with family Occupation/Education: occupation Gender identity (if verbalized by the patient): Female Sexual Orientation (if Verbalized by the Patient): Straight or Heterosexual Comments At the time of my signature, I reviewed and agree with the nursing past medical, surgical, social, and family history. There is no relevant family history pertinent to the patient complaint. Exam Narrative: GENERAL: This is a well-nourished, well-developed adult, in no apparent distress. They are non ill-appearing, nontoxic appearing. HEAD: normocephalic, atraumatic. EYES: Sclera clear/white. Conjunctiva normal. Vision is grossly intact. Extraocular movements intact EARS: External ears normal, auditory canals clear and without drainage, left TMs normal without perforation. Right TM with effusion otherwise normal. No perforation. Hearing grossly intact. NOSE: External nose normal with no obvious nasal discharge, nasal turbinates erythematous with exudate. , no rhinorrhea. THROAT: Mucous membranes moist, posterior pharynx cobblestone appearing, swelling. Uvula midline. Postnasal drip present. No trismus. NECK: Neck supple, non-tender without lymphadenopathy, masses or thyromegaly. CARDIOVASCULAR: Regular rate and rhythm without murmurs, gallops, or rubs. RESPIRATORY: Clear to auscultation. Breath sounds equal bilaterally. No wheezes, rales, or rhonchi. SKIN: warm, Dry, intact with no suspicious lesions or rash, good texture and turgor. NEURO: awake, alert, and oriented to person, place and time. There were no ob vious focal neurologic abnormalities. EXTREMITIES: No joint tenderness, effusion, or edema noted. Course Course Emergency Course: Portions of this record may have been created with voice recognition software Level of Care: Express Care Visit Vital Signs Vital signs: Vital Signs Temperature 97.6 F 08/12/25 09:02 Pulse Rate 89 08/12/25 09:02 Respiratory Rate 20 08/12/25 09:02 Blood Pressure 115/71 08/12/25 09:02 Pulse Oximetry 97 08/12/25 09:02 Oxygen Delivery Room Air 08/12/25 09:02 Temperature 97.6 F 08/12/25 09:02 Pulse Rate 89 08/12/25 09:02 Respiratory Rate 20 08/12/25 09:02 Blood Pressure 115/71 08/12/25 09:02 Pulse Oximetry 97 08/12/25 09:02 Oxygen Delivery Room Air 08/12/25 09:02 Reviewed Medical Decision Making MDM Narrative Medical decision making narrative: Effusion present the right ear, appears patient likely has a bacterial sinus infection based off exam findings. Symptoms been going on for over 2 weeks now. Will Treat with Augmentin. Discussed physical exam findings. Advised supportive measures and signs/symptoms to go to the ER. Pt is appropriate for outpt treatment and f/u. Differential Diagnosis Differential Diagnosis: Otitis media, otitis externa impacted cerumen, sinusitis, viral illness, upper respiratory infection, TMJ Vital Signs Vital Signs: Vital Signs Temperature 97.6 F 08/12/25 09:02 Pulse Rate 89 08/12/25 09:02 Respiratory Rate 20 08/12/25 09:02 Blood Pressure 115/71 08/12/25 09:02 Pulse Oximetry 97 08/12/25 09:02 Oxygen Delivery Room Air 08/12/25 09:02 Temperature 97.6 F 08/12/25 09:02 Pulse Rate 89 08/12/25 09:02 Respiratory Rate 20 08/12/25 09:02 Blood Pressure 115/71 08/12/25 09:02 Pulse Oximetry 97 08/12/25 09:02 Oxygen Delivery Room Air 08/12/25 09:02 Critical Care Time Critical Care Time Critical Care Time: No Discharge Plan Discharge Clinical Impression: Sinusitis Qualifiers: Sinusitis location: unspecified location Chronicity: acute Recurrence: non- recurrent Qualified Code(s): J01.90 - Acute sinusitis, unspecified Patient Disposition: Home Condition: Stable Instructions: Antibiotic Form, Sinusitis (ED) Additional Instructions: Take the antibiotics as directed and complete the course even if you start to feel better. You may use a Neti pot saline rinse 3 times a day with lukewarm distilled water Continue to take Tylenol or Motrin for pain. Follow instructions on the bottle. Use a humidifier or vaporizer at night. Drink plenty of water. 8-10 glasses per day. Use flonase 2 times per day for 5 days then as needed May also try azelastine antihistamine spray 2 sprays each nostril daily for congestion. Follow up with Primary provider in 3-5 days Please go to the ER if he develops any difficulty breathing, worsening symptoms, or any other concerns Patient Language: Croatian Prescriptions: New amoxicillin-pot clavulanate 875-125 mg tablet 1 tablet PO Q12H 7 Days Qty: 14 0RF No Action buspirone 30 mg tablet 30 mg PO BID sertraline 100 mg tablet metoprolol succinate 25 mg tablet extended release 24 hr PO cyclobenzaprine 5 mg tablet Follow-up/Referrals: PHYSICIAN NOT ON STAFF,NONSTAFF [Primary Care Provider] Time of Disposition: 09:19
== END 2025-08-12 09:22 | disposition home or self-care (01) ==
DX: J01.90 Acute sinusitis, unspecified (principal); F17.210 Nicotine dependence, cigarettes, uncomplicated; F41.9 Anxiety disorder, unspecified; F32.A Depression, unspecified
CPT/HCPCS: 99213; G0463